=== PATIENT | male | born 1980 | race Caucasian/White ===

== ENCOUNTER → 2019-06-05 14:58 | Outpatient (CLI) | payer MEDICAID, SELFPAY ==
--- NOTE | 2019-06-05 15:02 | US_ITS ---
APPROVED REPORT Laterality: Bilateral Bobbin Doffer: Uyen Enriquez RVT Indications History of Smoking Symptoms History of Smoking Weakness Claudication : Left Rest Pain : Left Risk Factors Obesity Pressures Radial 161.0mmHg Ulnar 167.0mmHg Left Radial 142.0mmHg Ulnar 135.0mmHg Findings RT WBI:1.11 LT WBI:0.95 RT DIGIT:0.86 LT DIGIT:0.90 NORMAL PULSES BILATERAL NORMAL WAVEFORMS BILATERAL Conclusion Normal exam Electronically signed by : Jagdish Laboy MD 06/07/2019 17:27:04
== END ==
PROVIDERS: PCP Nurse Practitioner Family; Visit Provider Nurse Practitioner Family
DX: R20.2 Paresthesia of skin (principal)
CPT/HCPCS: 93923

== ENCOUNTER 2019-10-27 15:38 | Emergency (ER) | payer MEDICAID, SELFPAY ==
[2019-10-27 15:38] VITALS: BP 145/87; PULSE 85; RESP 16; TEMP 36.8; O2SAT 99; BMI 35.1
--- NOTE | 2019-10-27 15:49 | PC.NURSE ---
pt requesting that staff get an ultrasound to start his iv after one unsuccessfull attempt. notified warehouse specialist, stated she will be down to attempt iv via ultrasound when she is finished with the ultrasound
--- NOTE | 2019-10-27 15:53 | XR_ITS ---
PROCEDURE: XR CHEST PORTABLE CLINICAL HISTORY: CP Nonsmoker COMPARISON: No exams were available for comparison FINDINGS: The cardiomediastinal silhouette and pulmonary vascularity are within normal limits. The lungs are clear without infiltrates, suspicious nodules, or pleural effusions. No acute bony abnormalities. IMPRESSION: No acute findings. Dictated by: Dr. Milo Morillo MD 10/27/2019 19:[address] Milo Morillo MD in [place] 10/27/2019 19:05
--- NOTE | 2019-10-27 15:53 | ECG_ITS ---
APPROVED REPORT Exam: Resting ECG HR:70 bpm ECG Measurements Heart Rate 70 AXES OK 166 P 49 QRSd 88 QRS 41 QT 392 T 48 QTc 423 <Conclusion> Normal sinus rhythm Normal ECG Electronically signed by : Sunny Carpenter, 10/28/2019 17:27:42
--- NOTE | 2019-10-27 16:00 | PC.NURSE ---
lab at , unsuccessful with obtaining blood.
--- NOTE | 2019-10-27 16:11 | PC.NURSE ---
rad at BS for portable xray
--- NOTE | 2019-10-27 16:12 | PC.NURSE ---
Adama Khanna at bedside for US guided IV
--- NOTE | 2019-10-27 16:18 | PC.NURSE ---
v/s delayed due to IV insertion
[2019-10-27 16:30] VITALS: BP 132/81; PULSE 64; O2SAT 97
[2019-10-27 16:30] LABS: Basophils % 0.3 % (0.1-2.0); Eosinophils % 0.4 % (0.1-12.0); Hematocrit 39.1 % (42.0-52.0); Hemoglobin 13.9 g/dL (14.1-18.0); Lymphocytes # 0.8 K/mm3 (0.7-4.5); Lymphocytes % 10.4 % (10-50); Mean Corpuscular HGB Conc 35.4 g/dL (31.8-35.4); Mean Corpuscular Volume 84.6 fl (80-94); Mean Platelet Volume 9.2 fl (7.4-10.4); Monocytes # 0.2 K/mm3 (0.1-1.0); Neutrophils # 6.2 K/mm3 (1.8-7.8); Neutrophils % 85.9 % (37.0-80.0); Platelet Count 190 K/mm3 (142-424); Red Blood Count 4.62 M/mm3 (4.60-6.20); Red Cell Distribution Width 13.4 % (11.5-17.5); White Blood Count 7.2 K/mm3 (4.8-10.8)
[2019-10-27 16:31] LABS: MANUAL DIFFERENTIAL MANUAL DIFFERENTIAL (MANUAL DIFF)
[2019-10-27 16:37] LABS: Chloride 102 mmol/L (98-107); Potassium 3.6 mmoL/L (3.5-5.1); Sodium 137 mmol/L (136-145)
[2019-10-27 16:40] LABS: Anion Gap 7.6 mEq/L (5-15); Blood Urea Nitrogen 9 mg/dl (9-20); Carbon Dioxide 31 mmol/L (22.0-30.0); Creatinine Clearance Estimated 196 mL/min (50-200); Estimated Glomerular Filt Rate 107 ml/min (>60); GFR (African American) 129 ML/MIN (>60)
[2019-10-27 16:41] LABS: Calcium 9.1 mg/dl (8.4-10.2); Glucose 134 mg/dl (74-100)
[2019-10-27 16:44] LABS: Lymphocytes % 13 % (10-50); Monocytes % 3 % (2-9); Neutrophils % 84 % (42-76); Platelet Estimate Normal; RBC Morphology Normal; Total Cells Counted 100
[2019-10-27 16:54] LABS: Troponin I < 0.01 ng/ml (0.00-0.034)
--- NOTE | 2019-10-27 17:20 | HMH.EDCP ---
ED Disposition Clinical Impression: Chest pain Disposition: Home, Self-Care Condition on Discharge: Good Instructions: DI for Atypical Chest Pain Additional Instructions: Please follow-up with [employer] or Dr. Cui for a stress test outpatient Prescriptions: Pantoprazole Sodium [Protonix 40mg tablet] 40 mg PO DAILY 30 Days #30 tab Transmission Status: Pending to [facility] Referrals: Jaime Napoles APRN [Primary Care Provider] - - Critical Care Critical Care Time: No Attestation: On 10/27/19, the high probability of a clinically significant, sudden or life threatening deterioration of the following system(s) required my full and direct attention, intervention and personal management. The time I documented below is in addition to time spent performing reported procedures but includes the following listed in this critical care notation. Medical Decision Making - Medical Records Medical records reviewed: Yes: I reviewed the patient's medical records. - Sergio Inquiry Pt receiving controlled substance: No Vital Signs: 10/27/19 15:38 10/27/19 16:30 Temperature 98.2 F Temperature Source Oral Pulse Rate [Right Radial] 85 64 Respiratory Rate 16 Blood Pressure [Right Arm] 145/87 H 132/81 Blood Pressure Mean [Right Arm] 106 98 Blood Pressure Source [Right Arm] Automatic Cuff Automatic Cuff Blood Pressure Position [Right Arm] Sitting Sitting 02 Sat by Pulse Oximetry 99 97 Oxygen Delivery Method Room Air Room Air - Lab Data Lab results reviewed: Yes: I reviewed the patient's lab results. Lab Results 10/27/19 16:25: WBC 7.2, RBC 4.62, Hgb 13.9 L, Hct 39.1 L, MCV 84.6, MCH 30.0, MCHC 35.4, RDW 13.4, Plt Count 190, MPV 9.2, Neut % (Auto) 85.9 H, Lymph % (Auto) 10.4, Tensas % (Auto) 3.0, Eos % (Auto) 0.4, Baso % (Auto) 0.3, Neut # (Auto) 6.2, Lymph # (Auto) 0.8, Tensas # (Auto) 0.2, Eos # (Auto) 0.0, Baso # (Auto) 0.0, Total Counted 100, Neutrophils % (Manual) 84 H, Lymphocytes % (Manual) 13, Monocytes % (Manual) 3, Platelet Estimate Normal, RBC Morphology Normal 10/27/19 16:25: Sodium 137, Potassium 3.6, Chloride 102, Carbon Dioxide 31 H, Anion Gap 7.6, BUN 9, Creatinine 0.80, Estimated Creat Clear 196, Estimated GFR 107, Est GFR ( Amer) 129, Glucose 134 H, Calcium 9.1, Troponin I < 0.01 Result diagrams: 10/27/19 16:25 10/27/19 16:25 Orders (Tests/Meds): ED MEDICATIONS Discontinued Medications Generic Name Dose Route Start Last Admin Trade Name Freq PRN Reason Stop Dose Admin Aspirin 324 mg 10/27/19 16:48 10/27/19 16:57 Aspirin 81mg Chewable Tablet PO 10/27/19 16:49 324 mg ONCE ONE Administration ORDERS Category Date Time Status XR chest portable Stat Exams 10/27/19 15:53 Taken Troponin I Q3H Lab 10/27/19 19:00 Ordered Troponin I Q3H Lab 10/27/19 22:00 Ordered - Radiology Data #1 Image(s): Chest Image Reviewed: Yes I reviewed the patient's radiology image w/the ED provider Preliminary Findings: Normal/NAD - ECG Data Tracing #1 I reviewed this ECG and interpreted as documented below: Normal Sinus Rhythm: Yes Medical Decision Narrative: Patient had 2 troponins done here in the ED I think this is secondary to GERD. Both troponins were negative. Fact is just visiting on for 2 days. Chest Pain HPI - General Chief Complaint: Chest Pain Stated Complaint: Chest Pain Time Seen by Provider: 10/27/19 17:00 Mode of Arrival: Ambulatory Limitations: No Limitations Description of Symptoms (Recalled from ER Triage Doc. by RN): Pt reports burning like pain in midsternal area of his chest that began 2 days ago. Pt reports pain is intermittent in nature, states pain went away yesterday and came back today. - History of Present Illness MD complaint: chest pain Onset (ago): day(s) Time: 19:00 Duration: constant Activity at onset: during rest Pain location: substernal Severity: mild Severity scale (1-10): 3 Quality: aching, oth
[2019-10-27 18:17] LABS: Troponin I < 0.01 ng/ml (0.00-0.034)
[2019-10-27 18:39] VITALS: BP 122/74; PULSE 78; RESP 16; TEMP 36.6; O2SAT 98
== END 2019-10-27 18:40 | disposition home or self-care (01) ==
PROVIDERS: Emergency Provider Family Medicine; PCP Nurse Practitioner Family
DX: R07.9 Chest pain, unspecified (principal); I10 Essential (primary) hypertension; F33.1 Major depressive disorder, recurrent, moderate; F12.10 Cannabis abuse, uncomplicated; Z79.899 Other long term (current) drug therapy
CPT/HCPCS: 71045; 80048; 84484; 85007; 85025; 93005; 96374; 99283

== ENCOUNTER → 2019-11-14 07:55 | Outpatient (CLI) | payer MEDICAID, SELFPAY ==
--- NOTE | 2019-11-14 | CA_ITS ---
APPROVED REPORT Exam: Exercise Treadmill Technologist: Xuan Pacheco, Ht: 5 ft 11 in Wt: 272 lbs BSA: 2.40 m2 HR: 53 bpm BP: 123/73 mmHg Rhythm: SINUS ROMERO,OTHERWISE NORMAL Medical History Medical History: HTN Medications: Lisinopril,,,,, Protonix,,,,, BuPROPION,,,,, BuPRen-NALOXONE,,,,, Allergies: No known drug allergies Cardiac Risk Factors: HTN, FHX of CAD Stress Test Details Test: Manual Treadmill HR Resting HR: 61 bpm Max Heart Rate (APMHR): 179 bpm Max HR Achieved: 144 bpm Target HR (85% APMHR): 152 bpm % of APMHR: 80 Recovery HR: 90 bpm BP Resting BP: 123.0/73.0 mmHg Max BP: 180.0/80.0 mmHg Recovery BP: 138.0/63.0 mmHg ECG Resting ECG: SINUS BRADYCARDIA,OTHERWISE NORMAL Medications Administered Dobutamine ( mg at ) Clinical Exercise duration: 09:25 min Highest Stage Achieved: Exercise capacity: 10.1 METs Stress ECG Conclusion PATIENT EXERCISED 9:25 ON CLEM PROTOCOL WITH MAX HEART RATE 144 BPM WHICH IS 80% OF PM FOR AGE. MAX BP 180/80. METS = 10.1. TEST STOPPED DUE TO SOA AND FATIGUE. NO CHEST PAIN. OCCASIONAL PAC. ALLOWING FOR MOTION ARTIFACT THE ST RESPONSE TO EXERCISE IS WITHIN NORMAL. NORMAL GXT FOR HR ACHIEVED(80% OF PM). ECHO IMAGES REPORTED SEPARATELY(REST AND STRESS) Test Summary REST . . . . . . . Standing REST . . . . . . . Standing REST . . . . . . . Sitting REST . . . . . . . Sitting REST 06:17 0.0 0.0 61 . 123/ 73 . . Stage 1 01:00 10.0 1.7 92 . . . . Stage 1 02:00 10.0 1.7 92 . . . . Stage 1 03:00 10.0 1.7 94 . 130/ 70 . . Stage 2 01:00 12.0 2.5 100 . . . . Stage 2 02:00 12.0 2.5 103 . . . . Stage 2 03:00 12.0 2.5 110 . 146/ 80 . . Stage 3 01:00 14.0 3.4 121 . . . . Stage 3 02:00 14.0 3.4 127 . . . . Stage 3 03:00 14.0 3.4 133 . 180/ 80 . . Stage 4 00:25 16.0 4.2 142 . . . Stop exercise at 09:25 RECOVERY . . . . . . . Protocol changed to Manual Treadmill RECOVERY 01:00 0.0 0.0 90 . . . . RECOVERY 02:00 0.0 0.0 69 . . . . RECOVERY 03:00 0.0 0.0 74 . . . . RECOVERY 04:00 0.0 0.0 73 . 138/ 63 . . RECOVERY 05:00 0.0 0.0 72 . 138/ 63 . . RECOVERY 06:00 0.0 0.0 74 . 138/ 63 . . RECOVERY 07:00 0.0 0.0 78 . 117/ 51 . . Electronically signed by : Benja Hugo, 11/14/2019 14:16:09
--- NOTE | 2019-11-14 07:55 | CA_ITS ---
APPROVED REPORT EXAM: Comprehensive 2D, Doppler, and color-flow Echocardiogram Canvas Baster: Tiana Whitfield, RT(R) Ht: 5 ft 11 in Wt: 272lbs BSA: 2.40 BP: 120/73 mmHg Indications: CP, fatigue, HTN, SOB, CROW, obesity, family history of HD, GERD, ANTHONY, smokeless Conclusion 1. Patient exercised on Sukhdeep protocol achieved 10.1 mets of workload on treadmill with no chest pain. 2. No exercise-induced segmental wall motion abnormality to suggest underlying ischemic heart disease. Although patient did not achieve the target heart rate. 3. Likely normal exercise stress echo Electronically signed by : Benja Hugo, 11/14/2019 14:21:41
--- NOTE | 2019-11-14 07:55 | CA_ITS ---
APPROVED REPORT EXAM: Comprehensive 2D, Doppler, and color-flow Echocardiogram Fleet Manager/Dispatch: Tiana Whitfield RT(R) Ht: 5 ft 11 in Wt: 272lbs BSA: 2.40 BP: 134/80 mmHg Indications: Chest Pain, Shortness of Breath, Obesity, Fatigue, Hypertension/HDD, GERD, ANTHONY, Hx of IV drug use in remission 2D Dimensions LVOT 2.03 cm (M/F) 1.5-2.5 M-Mode Dimensions RVDd 2.33 cm (0.9-2.6) LVDd 5.37 cm (3.5-5.7) LVDs 3.83 cm (3.5-5.7) IVSd 0.97 cm (0.6-1.1) PWd 0.86 cm (0.6-1.1) EF (Teich) 54.80% FS 28.70% EDV (Teich) 139.50 mL ESV (Teich) 63.10 mL LV Diastology E/A Ratio 1.77 Mitral Valve MV A Velocity 54.00 (40-130 cm/s) Left Ventricle Left atrium is normal size, left ventricle is normal size, there is no concentric left ventricular hypertrophy, visually estimated ejection fraction 55% with no regional wall motion abnormality, diastolic parameters are within normal range. Right Ventricle Right atrium and right ventricular normal size and contractility. Aortic Valve Aortic valve is minimally thickened and fibrosed, there is no aortic stenosis or aortic insufficiency. Mitral Valve Mitral valve is grossly normal, there is mild mitral regurgitation. Tricuspid Valve Tricuspid valve is grossly normal, there is mild tricuspid regurgitation, tricuspid regurgitation jet velocity is inadequate for calculation of the right ventricular systolic pressure. Pulmonic Valve Pulmonic valve is poorly visualized. Great Vessels Aortic root is normal size. Pericardium No significant pericardial effusion noted. Conclusion 1. Normal left ventricular size, preserved left ventricular systolic function, visually estimated ejection fraction 55% with no regional wall motion abnormality, diastolic parameters are within normal range. 2. Mild mitral and tricuspid regurgitation. 3. No significant pericardial effusion noted. Electronically signed by : Benja Hugo, 11/14/2019 13:57:01
== END ==
PROVIDERS: PCP Nurse Practitioner Family; Visit Provider Internal Medicine Cardiovascular Disease
DX: R07.9 Chest pain, unspecified (principal); I10 Essential (primary) hypertension
CPT/HCPCS: 93017; 93306; 93350

== ENCOUNTER → 2019-12-06 14:19 | Outpatient (CLI) | payer MEDICAID, SELFPAY | PROVIDERS: PCP Nurse Practitioner Family; Visit Provider Physician Assistant | DX: G47.33 Obstructive sleep apnea (adult) (pediatric) (principal) | CPT/HCPCS: G0399 ==

== ENCOUNTER → 2020-01-14 09:33 | Outpatient (CLI) | payer MEDICAID, SELFPAY ==
--- NOTE | 2020-01-15 10:38 | PC.NURSE ---
PATIENT TOOK HST HOME - ONLY 1.5 HOURS OF SLEEP THEREFORE NOT UPLOADED DUE TO LACK OF TIME - PATIENT NOTIFIED... NO CHARGE...
== END ==
PROVIDERS: PCP Nurse Practitioner Family; Visit Provider Nurse Practitioner Family
DX: G47.30 Sleep apnea, unspecified (principal)

== ENCOUNTER → 2020-04-22 16:05 | Outpatient (CLI) | payer MEDICAID, SELFPAY ==
[2020-04-22 16:59] LABS: Basophils # 0.1 K/mm3 (0-0.2); Basophils % 0.7 % (0.1-2.0); Eosinophils # 0.1 K/mm3 (0.0-0.4); Eosinophils % 1.7 % (0.1-12.0); Hematocrit 45.3 % (42.0-52.0); Hemoglobin 15.8 g/dL (14.1-18.0); Lymphocytes # 2.2 K/mm3 (0.7-4.5); Mean Corpuscular HGB Conc 34.8 g/dL (31.8-35.4); Mean Corpuscular Hemoglobin 30.6 pg (27.0-31.2); Mean Corpuscular Volume 87.9 fl (80-94); Mean Platelet Volume 8.9 fl (7.4-10.4); Monocytes # 0.3 K/mm3 (0.1-1.0); Monocytes % 3.9 % (1.7-9.3); Neutrophils # 5.4 K/mm3 (1.8-7.8); Neutrophils % 66.7 % (37.0-80.0); Platelet Count 191 K/mm3 (142-424); Red Blood Count 5.15 M/mm3 (4.60-6.20); Red Cell Distribution Width 13.5 % (11.5-17.5); White Blood Count 8.2 K/mm3 (4.8-10.8)
[2020-04-22 18:38] LABS: Chloride 102 mmol/L (98-107); Potassium 4.2 mmoL/L (3.5-5.1); Sodium 140 mmol/L (136-145)
[2020-04-22 18:41] LABS: Blood Urea Nitrogen 11 mg/dl (9-20); Estimated Glomerular Filt Rate 107 ml/min (>60); GFR (African American) 129 ML/MIN (>60)
[2020-04-22 18:42] LABS: Anion Gap 14.2 mEq/L (5-15); Calcium 9.8 mg/dl (8.4-10.2); Carbon Dioxide 28 mmol/L (22.0-30.0); Glucose 97 mg/dl (74-100)
[2020-04-22 19:13] LABS: Thyroid Stimulating Hormone 0.95 uIU/mL (0.465-4.68)
[2020-04-22 19:17] LABS: Ferritin 94.6 ng/ml (17.9-464)
[2020-04-22 19:23] LABS: Hemoglobin A1C 5.2 % (4.0-6.0)
[2020-04-28 20:10] LABS: 1,25 Dihydroxy Vitamin D 38 pg/mL (.); 1,25-Dihydroxy, Vitamin D-2 <10 pg/mL (.); 1,25-Dihydroxy, Vitamin D-3 38 pg/mL (.)
== END ==
PROVIDERS: PCP Nurse Practitioner Family; Visit Provider Specialist
DX: R73.09 Other abnormal glucose (principal)
CPT/HCPCS: 36415; 80048; 82652; 82728; 83036; 84443; 85025

== ENCOUNTER 2020-05-05 12:48 | Outpatient (RCR) | payer MEDICAID, SELFPAY ==
--- NOTE | 2020-05-05 14:18 | HMH.PTOPEV ---
PT Outpatient Evaluation Rehab PT Outpatient Evaluation Start: 05/05/20 13:36 Freq: Status: Active Protocol: Document 05/05/20 13:36 JOHN (Rec: 05/05/20 14:17 JOHN [id number]) Electronically Signed By Du Keller, PT 05/05/20 13:36 Outpatient Therapy Subjective History Subjective History Pt reports insidious onset R sided neck pain beginning ~2 months ago. Pt reports localized soreness in R UT mm w/referred pain into R scalene mm, and periscap mm area. Pt reports intermittent N&T in R SH area as well. Chief Complaint Pain,Stiff,Paresthesia Symptom Type Ache,Dull,Numbness,Tingling Symptoms Relieved By Rest/Positioning,Heat Symptoms Aggravated By Physical Activity,Lifting Prior Functional Limitations Lifting,Housework,Desk Work/ Reading Current Functional Limitations Lifting,Housework,Desk Work/ Reading Symptom Description Constant but Variable Level of pain today (0-10) 5 Pain scale - at its best (0-10) 5 Pain scale - at its worst (0-10) 7 Cervical Eval Palpation Cervical Muscles R Cervical Paraspinal,R CT Junction,R Upper Trapezius Cervical/Thoracic Palpation Findings Tenderness,Trigger Point, Muscle Guarding Posture Head/C-Spine Posture Sitting Position Flexed Head/C-Spine Posture Standing Position Flexed Flexibility Deficits Upper Trapezius Muscle Length (R) Moderate Tightness Levaetor Scapulae Muscle Length (R) Moderate Tightness Scalene Group Muscle Length (R) Moderate Tightness Pectoralis Major Muscle Length (R) Moderate Tightness Pectoralis Minor Muscle Length (R) Moderate Tightness Passive Joint Mobility Cervical PIVM WNL: R OA L OA R AA L AA R C2/3 L C2/3 R C3/4 L C3/4 R C4/5 L C4/5 R C5/6 L C5/6 R C6/7 L C6/7 R C7/T1 L C7/T1 AROM Cervical Spine Extension Active Range of 0-20 Motion (degrees) Cervical Spine Flexion Active Range of 0-60 Motion (degrees)
== END 2020-05-05 12:50 | disposition home or self-care (01) ==
LOC: PT 12:48
PROVIDERS: PCP Nurse Practitioner Family; Visit Provider Nurse Practitioner Family
DX: S46.811A Strain of other muscles, fascia and tendons at shoulder and upper arm level, right arm, initial encounter (principal)
CPT/HCPCS: 20561; 97010; 97014; 97035; 97110; 97163; G0283

== ENCOUNTER → 2021-11-26 15:34 | Outpatient (CLI) | payer MEDICAID, SELFPAY ==
[2021-11-26 12:59] LABS: Basophils % 0.7 % (0.1-2.0); Eosinophils # 0.1 K/mm3 (0.0-0.4); Eosinophils % 1.2 % (0.1-12.0); Hemoglobin 15.3 g/dL (14.1-18.0); Lymphocytes # 1.7 K/mm3 (0.7-4.5); Lymphocytes % 29.9 % (10-50); Mean Corpuscular Hemoglobin 30.1 pg (27.0-31.2); Mean Corpuscular Volume 88.6 fl (80-94); Mean Platelet Volume 8.2 fl (7.4-10.4); Monocytes # 0.3 K/mm3 (0.1-1.0); Monocytes % 5.9 % (1.7-9.3); Neutrophils # 3.6 K/mm3 (1.8-7.8); Neutrophils % 62.3 % (37.0-80.0); Platelet Count 196 K/mm3 (142-424); Red Blood Count 5.08 M/mm3 (4.60-6.20); Red Cell Distribution Width 12.1 % (11.5-17.5); White Blood Count 5.7 K/mm3 (4.8-10.8)
[2021-11-26 13:11] LABS: Alanine Aminotransferase 29 U/L (12-78); Albumin Level 4.4 g/dl (3.5-5.0); Albumin/Globulin Ratio 1.4 (1.1-1.8); Alkaline Phosphatase 84 U/L (38-126); Anion Gap 12.1 mEq/L (5-15); Aspartate Amino Transferase 47 U/L (17-59); Bilirubin,Total 0.5 mg/dl (0.2-1.3); Blood Urea Nitrogen 12 mg/dl (9-20); Calcium 9.5 mg/dl (8.4-10.2); Carbon Dioxide 27 mmol/L (22.0-30.0); Chloride 103 mmol/L (98-107); Chol/HDL Ratio 2.9 (1-3.5); Cholesterol 173 mg/dl (140-200); Estimated Glomerular Filt Rate 147 ml/min (>60); GFR (African American) 178 ML/MIN (>60); Globulin 3.1 g/dL (1.3-3.2); Glucose 111 mg/dl (74-100); HDL Cholesterol 60 mg/dl (40-60); Potassium 4.1 mmoL/L (3.5-5.1); Sodium 138 mmol/L (136-145); Total Protein,Serum 7.5 g/dl (6.3-8.2); Triglycerides 57 mg/dl (30-150); VLDL Cholesterol 11 mg/dL (0-40)
[2021-11-26 13:22] LABS: Direct LDL Cholesterol 77.88 mg/dL (100-129)
[2021-11-26 13:28] LABS: T4 (Thyroxine) 10.3 ug/dl (5.53-11.0)
[2021-11-26 13:29] LABS: 25-OH Vitamin D, Total 41.7 ng/mL (30-100)
[2021-11-26 13:41] LABS: Prostate Specific Ag Screen 0.9 ng/ml (0.0-4.0); Thyroid Stimulating Hormone 0.93 uIU/mL (0.465-4.68)
== END ==
PROVIDERS: Visit Provider Nurse Practitioner Family
DX: I10 Essential (primary) hypertension (principal); R53.83 Other fatigue; E66.9 Obesity, unspecified; Z68.31 Body mass index [BMI] 31.0-31.9, adult; Z12.5 Encounter for screening for malignant neoplasm of prostate
CPT/HCPCS: 80053; 80061; 82306; 84436; 84443; 85025; G0103

== ENCOUNTER → 2021-12-21 11:50 | Outpatient (CLI) | payer MEDICAID, SELFPAY | PROVIDERS: PCP Nurse Practitioner Family; Visit Provider Internal Medicine Gastroenterology | DX: Z01.812 Encounter for preprocedural laboratory examination (principal); Z20.822 Contact with and (suspected) exposure to COVID-19; Z12.11 Encounter for screening for malignant neoplasm of colon | CPT/HCPCS: C9803; U0003; U0005 ==

== ENCOUNTER 2021-12-23 10:47 | Day surgery (SDC) | payer MEDICAID, SELFPAY ==
[2021-12-20 11:32] VITALS: BMI 31.4
[2021-12-23 11:59] VITALS: BP 133/62; PULSE 63; RESP 16; TEMP 36.6; O2SAT 98
[2021-12-23 12:42] VITALS: O2SAT 97
--- NOTE | 2021-12-23 14:21 | SUR.PHASEII ---
1320- pt to post op via stretcher having an aborted colonoscopy. No sedation given. b/p @ 153/90, hr @65, resp 18, 02 @ 98%. Pt awake and alert. Dressed and able to void. Re-scheduled colonoscopy in 4 weeks.
== END 2021-12-23 14:27 | disposition home or self-care (01) ==
LOC: OUTP 10:49
PROVIDERS: Visit Provider Internal Medicine Gastroenterology
PROC: 0DJD8ZZ Inspection of Lower Intestinal Tract, Via Natural or Artificial Opening Endoscopic (ICD-10-PCS; CPT 45378; principal; 2021-12-23 12:00)
DX: Z12.11 Encounter for screening for malignant neoplasm of colon (principal); Z53.9 Procedure and treatment not carried out, unspecified reason; Z79.899 Other long term (current) drug therapy; Z80.0 Family history of malignant neoplasm of digestive organs
CPT/HCPCS: 45378

== ENCOUNTER 2022-01-07 23:28 | Emergency (ER) | payer MEDICAID, SELFPAY ==
--- NOTE | 2022-01-07 23:24 | ECG_ITS ---
APPROVED REPORT Exam: Resting ECG HR:59 bpm ECG Measurements Heart Rate 59 AXES ME 170 P 61 QRSd 106 QRS 61 QT 419 T 51 QTc 419 Conclusion SINUS BRADYCARDIA BORDERLINE ECG UNCONFIRMED REPORT Electronically signed by : Sunny Carpenter MD 01/08/2022 16:22:43
[2022-01-07 23:28] VITALS: BP 139/85; PULSE 84; RESP 16; TEMP 36.8; O2SAT 99; BMI 32.1
--- NOTE | 2022-01-08 00:02 | HMH.EDCP ---
Discharge Plan Disposition Patient Disposition: Home, Self-Care Chief Complaint: Chest Pain Prescriptions Prescriptions: No Action buprenorphine-naloxone 8-2 mg tablet, sublingual 1 tab SL DAILY clotrimazole-betamethasone 1-0.05 % cream 1 applic TP BID Qty: 15 0RF cetirizine 10 MG tablet 10 mg PO DAILY Rx Instructions: TAKE ONE TABLET BY MOUTH ONCE A DAY pantoprazole 40 MG tablet,delayed release (DR/EC) 40 mg PO DAILY Rx Instructions: TAKE ONE TABLET BY MOUTH ONCE A DAY lisinopril 5 MG tablet 5 mg PO DAILY Referrals Follow up/Referrals: Jaime Napoles APRN [Primary Care Provider] - See instructions Clinical Impressions Clinical Impression: Chest pain Instructions Patient Instructions: DI for Atypical Chest Pain Discharge ED Provider: Mikael Laguna Chest Pain HPI General Chief Complaint: Chest Pain Stated Complaint: cp Time Seen by Provider: 01/08/22 00:02 Mode of Arrival: Ambulatory Source of Information: Patient, Significant Other and Medical Record Limitations: No Limitations Description of Symptoms (Recalled from ER Triage Doc. by RN): pt c/o burning chest pain radiating down lt arm that started @ 7pm. History of Present Illness HPI narrative: burning type pain with no hx of mi - MD complaint: chest pain indicative of cardiac Onset (ago): hour(s) Duration: intermittent Activity at onset: during rest Pain location: epigastric Severity: moderate Quality: dull Pain radiation: LUE Risk Factors for CAD: Hypertension and Family Hx of CAD Treatments prior to or on arrival for Cardiac Chest Pain: none AYSE Score for Non-Stemi Age of Patient: 40-49 years old Heart Rate: 70-89 bpm Systolic Blood Pressure: 100-119 mmHg Serum Creatinine: 0.40-0.79 mg/dl CHF Killip Class: I-No CHF Other Risk Factors: None Non-Stemi Risk Score: 81 Related Data Prior Cardiac Testing/Procedures: Stress Test Home Medications Medication Instructions Recorded Confirmed buprenorphine 8 mg-naloxone 2 mg 1 tab sublingual DAILY . 07/03/19 01/04/22 sublingual tablet cetirizine 10 mg tablet 10 mg PO DAILY allergies 12/20/21 01/04/22 lisinopril 5 mg tablet 5 mg PO DAILY bp 12/20/21 01/04/22 pantoprazole 40 mg tablet,delayed 40 mg PO DAILY Reflux/Acid reflux 12/20/21 01/04/22 release Previous Rx's Medication Instructions Recorded clotrimazole-betamethasone 1 1 applic topical BID to use in 12/28/21 %-0.05 % topical cream right ear canal #15 grams Allergies Allergy/AdvReac Type Severity Reaction Status Date / Time No Known Allergies Allergy Unknown Uncoded 01/04/22 13:48 PFSH [facility] Medical History (Updated 01/08/22 @ 01:52 by Mikael Laguna MD) GERD (gastroesophageal reflux disease) Hypertension Social History Smoking Status: Never smoker second hand exposure: No alcohol intake: current substance use type: painkillers current occupational status: employed Travel in the last 8 weeks: None household members: significant other and children housing: house current occupational exposures/hazards: No caffeine: Yes ROS Obtained: Yes All systems reviewed & no additional complaints except as documented Physical Exam General General appearance: alert Head Head exam: normocephalic Eye Eye exam: Present PERRL and EOMI ENT ENT exam: Present mucous membranes moist Neck Neck exam: Present trachea midline Respiratory Respiratory exam: Present normal lung sounds bilaterally Cardiovascular Cardiovascular exam: Present regular rate; Absent systolic murmur Abdominal Exam Abdominal exam: Present soft Extremities Exam Extremities exam: Present full ROM Neurological Exam Neurological exam: Present alert, oriented X3 and CN II-XII intact Psychiatric Psychiatric exam: Present normal affect Skin Skin exam: Absent rash Medical Decision Making Medical Records Medical records reviewed: Yes I reviewed the patient's medical records. [facility]
[2022-01-08 00:04] LABS: Chloride 102 mmol/L (98-107); Sodium 141 mmol/L (136-145)
[2022-01-08 00:07] LABS: Basophils # 0.1 K/mm3 (0-0.2); Basophils % 1.1 % (0.1-2.0); Eosinophils # 0.1 K/mm3 (0.0-0.4); Eosinophils % 1.5 % (0.1-12.0); Hematocrit 44.1 % (42.0-52.0); Hemoglobin 14.1 g/dL (14.1-18.0); Lymphocytes % 34.2 % (10-50); Mean Corpuscular Hemoglobin 29.2 pg (27.0-31.2); Mean Corpuscular Volume 91.3 fl (80-94); Mean Platelet Volume 8.6 fl (7.4-10.4); Monocytes # 0.3 K/mm3 (0.1-1.0); Monocytes % 4.6 % (1.7-9.3); Neutrophils # 3.4 K/mm3 (1.8-7.8); Neutrophils % 58.5 % (37.0-80.0); Platelet Count 203 K/mm3 (142-424); Red Blood Count 4.83 M/mm3 (4.60-6.20); Red Cell Distribution Width 12.6 % (11.5-17.5); White Blood Count 5.8 K/mm3 (4.8-10.8)
[2022-01-08 00:14] LABS: Anion Gap 11.2 mEq/L (5-15); Blood Urea Nitrogen 17 mg/dl (9-20); Calcium 9.6 mg/dl (8.4-10.2); Carbon Dioxide 31 mmol/L (22.0-30.0); Creatinine Clearance Estimated 201 mL/min (50-200); Estimated Glomerular Filt Rate 123 ml/min (>60); GFR (African American) 149 ML/MIN (>60); Glucose 118 mg/dl (74-100); Potassium 3.2 mmoL/L (3.5-5.1)
[2022-01-08 00:21] LABS: Troponin I < 0.01 ng/ml (0.00-0.034)
[2022-01-08 00:30] VITALS: BP 110/59; PULSE 45; RESP 16; O2SAT 95
--- NOTE | 2022-01-08 00:36 | XR_ITS ---
PROCEDURE INFORMATION: Exam: XR Chest Exam date and time: 01/08/2022 12:32 AM Age: 41 years old Clinical indication: Sternal or substernal pain; Additional info: Cp TECHNIQUE: Imaging protocol: Radiologic exam of the chest. Views: 2 views. COMPARISON: CR XR CHEST PORTABLE 10/27/2019 4:19 PM FINDINGS: Lungs: Unremarkable. No consolidation. Pleural spaces: Unremarkable. No pleural effusion. No pneumothorax. Heart/Mediastinum: Unremarkable. No cardiomegaly. Bones/joints: Unremarkable. IMPRESSION: No acute cardiopulmonary abnormality.
[2022-01-08 01:00] VITALS: BP 117/65; PULSE 46; RESP 16; O2SAT 96
[2022-01-08 01:30] VITALS: BP 117/61; PULSE 43; RESP 13; O2SAT 95
[2022-01-08 01:51] VITALS: BP 117/61; PULSE 46; PULSE 64; RESP 16; TEMP 36.8; O2SAT 95
[2022-01-08 02:42] LABS: Troponin I < 0.01 ng/ml (0.00-0.034)
== END 2022-01-08 02:47 | disposition home or self-care (01) ==
PROVIDERS: Emergency Provider Emergency Medicine; PCP Nurse Practitioner Family
DX: R07.9 Chest pain, unspecified (principal); M79.601 Pain in right arm; I10 Essential (primary) hypertension; K21.9 Gastro-esophageal reflux disease without esophagitis; G47.30 Sleep apnea, unspecified; I25.10 Atherosclerotic heart disease of native coronary artery without angina pectoris; Z87.891 Personal history of nicotine dependence; Z82.49 Family history of ischemic heart disease and other diseases of the circulatory system
CPT/HCPCS: 71046; 80048; 84484; 85025; 93005; 96361; 96374; 96375; 96376; 99285; J2405

== ENCOUNTER → 2022-01-11 09:43 | Outpatient (CLI) | payer MEDICAID, SELFPAY ==
--- NOTE | 2022-01-11 09:43 | MR_ITS ---
FINAL REPORT CLINICAL HISTORY: left unilateral tinnitus- temporal bone protocol right sided ear pain and numbness x6 months dizziness ringing in ear hx of sinus surgery when patient was 13 years old best images possible was able to do the wo before patinet started to get claustrophobic, insrusted patient to call order doctors and explain to them what happened FINDINGS: Multiplanar MR imaging of the brain was performed without contrast, with attention to the posterior fossa, cerebellopontine angles and internal auditory canals. There is no evidence of intracranial hemorrhage or mass. The ventricular size is within normal limits. There is no evidence of shift of the midline structures. No area of abnormal restricted diffusion is identified. Normal major vessel vascular flow voids are seen. No mass is seen within the cerebellopontine angles or internal auditory canals. No focal abnormality is identified of the temporal bones. IMPRESSION: No acute intracranial abnormality identified. Reviewed, Interpreted and Dictated by Sonny Castro III, MD Transcribed by Kacey Kimbrough Authenticated and . [facility]
== END ==
PROVIDERS: PCP Nurse Practitioner Family; Visit Provider Student in an Organized Health Care Education/Training Program
DX: H92.01 Otalgia, right ear (principal); H93.11 Tinnitus, right ear
CPT/HCPCS: 70551

== ENCOUNTER → 2022-01-18 10:42 | Outpatient (CLI) | payer MEDICAID, SELFPAY | PROVIDERS: PCP Nurse Practitioner Family; Visit Provider Internal Medicine Gastroenterology | DX: Z01.818 Encounter for other preprocedural examination (principal); Z20.822 Contact with and (suspected) exposure to COVID-19; Z12.11 Encounter for screening for malignant neoplasm of colon | CPT/HCPCS: C9803; U0003; U0005 ==

== ENCOUNTER 2022-01-20 10:31 | Day surgery (SDC) | payer MEDICAID, SELFPAY ==
[2022-01-20 10:57] VITALS: BP 148/67; PULSE 63; RESP 17; TEMP 37.1; O2SAT 99; BMI 32.8
--- NOTE | 2022-01-20 11:20 | P.PN_ITS ---
PFSH PFS Medical History (Updated 01/20/22 @ 10:54 by Hyun Montero, RN) GERD (gastroesophageal reflux disease) Hypertension Presence of surgical screw in left hand Sleep apnea Surgical History (Updated 01/20/22 @ 10:54 by Hyun Montero, RN) History of nasal surgery Family History (Updated 01/20/22 @ 10:54 by Hyun Montero, RN) Other Lung cancer Prostate cancer Social History (Updated 01/20/22 @ 10:56 by Hyun Montero, RN) Smoking Status: Former smoker pack-years: 5 second hand exposure: No alcohol intake: current substance use type: painkillers current occupational status: employed Travel in the last 8 weeks: None household members: significant other and children housing: house current occupational exposures/hazards: No caffeine: Yes [facility] Anesthesia Checklist Patient Identification Patient Identification: Arm Band Structural Data Admitted From: Home Planned Operative Procedure/s: Colonoscopy Consent for Planned Operative Procedure(s) Verified: Yes Verified Documents: Surgical Consent and History and Physical NPO Status Verified Time NPO: 08:00 (gatorade) Additional verifications Anesthesia Reactions: No Hx Blood Transfusions: No Blood Transfusion Reaction: No Airway Assessment C-Spine Mobility Assessed: Yes TMJ Mobility Assessed: Yes Dentition: Good Dentition Neurological Assessment Level of Consciousness: Awake and Alert Anesthesia Plan Anesthesia Risk discussed: Yes Anesthesia Plan: Verified ASA Class: II Anesthesia Type: MAC
--- NOTE | 2022-01-20 12:10 | HMH.SCOPE ---
Procedure: Date: 01/20/22 Patient Date of :: 1980 Procedure Performed:: Colonoscopy with polypectomy Indications:: Family history of colon cancer Performing Provider:: Samuel Bran MD Referring Provider:: Jaime Napoles Sedation:: Propofol Procedure:: After placing the patient in the left lateral decubitus position, the colonoscopy was gently inserted into the rectum and under direct visualization advanced to the cecum which was identified by transillumination in the right lower quadrant, identification of the ileocecal valve, appendiceal orifice, and cecal strap. Color, texture, mucosa, and anatomy of the colon were carefully examined with the scope. Findings:: Anal canal: normal Rectum: normal Sigmoid colon: normal without polyps or inflammatory changes Descending colon: normal without inflammatory changes 0.3 cm adenomatous polyp identified and removed with use of forceps Splenic flexure: normal Transverse colon: normal without polyps or inflammatory changes Hepatic flexure: normal Ascending colon: normal without polyps or inflammatory changes Cecum: normal Terminal ileum: not visualized Specimens:: Polyp, descending colon Recommendations:: Repeat examination in about 3-5 years, sooner if clinically indicated Complications:: None Estimated blood obtained (mL): 0
[2022-01-20 12:19] VITALS: BP 115/72; PULSE 47; RESP 18; TEMP 36.9; O2SAT 99
[2022-01-20 12:29] VITALS: BP 123/81; PULSE 61; RESP 18; TEMP 36.9; O2SAT 100
[2022-01-20 12:39] VITALS: BP 130/78; PULSE 56; RESP 18; TEMP 36.9; O2SAT 99
[2022-01-20 12:55] VITALS: BP 126/75; PULSE 50; RESP 18; TEMP 36.9; O2SAT 98
== END 2022-01-20 12:55 | disposition home or self-care (01) ==
PROVIDERS: PCP Nurse Practitioner Family; Visit Provider Internal Medicine Gastroenterology
PROC: 0DJD8ZZ Inspection of Lower Intestinal Tract, Via Natural or Artificial Opening Endoscopic (ICD-10-PCS; CPT 45378; principal; 2022-01-20 11:30)
DX: Z12.11 Encounter for screening for malignant neoplasm of colon (principal); Z80.0 Family history of malignant neoplasm of digestive organs; K63.5 Polyp of colon
CPT/HCPCS: 45380

== ENCOUNTER → 2022-02-10 10:04 | Outpatient (CLI) | payer MEDICAID, SELFPAY ==
--- NOTE | 2022-02-10 10:05 | CT_ITS ---
FINAL REPORT TECHNIQUE: Thin section axial CT images with coronal and sagittal reformats were performed through the neck. This study was performed with techniques to keep radiation doses as low as reasonably achievable (ALARA). Individualized dose reduction techniques using automated exposure control or adjustment of mA and/or kV according to the patient's size were employed. CLINICAL HISTORY: right ear/jaw pain and fullness FINDINGS: There are multiple small and borderline size lymph nodes. There is no definite adenopathy. There are several calcifications in the region of the tonsillar pillars that are likely postinflammatory. There is mild fullness of the right tonsillar pillar of uncertain significance. The nasopharynx and hypopharynx are unremarkable. Larynx is unremarkable. Thyroid gland is unremarkable. IMPRESSION: Mild fullness of the right tonsillar pillar of uncertain significance could be inflammatory. Neoplasm cannot be excluded. Calcifications in the region of the tonsillar pillars are likely postinflammatory. Reviewed, Interpreted and Dictated by Sonny Castro III, MD Transcribed by Bucky Guo Authenticated and [facility]
== END ==
PROVIDERS: PCP Otolaryngology; Visit Provider Otolaryngology
DX: H92.01 Otalgia, right ear (principal)
CPT/HCPCS: 70490

== ENCOUNTER 2022-04-22 10:04 | Outpatient (RCR) | payer MEDICAID, SELFPAY ==
--- NOTE | 2022-04-22 12:04 | HMH.OTOPEV ---
OT Inpatient Evaluation Rehab OT Outpatient Eval Start: 04/22/22 10:43 Freq: Status: Active Protocol: Document 04/22/22 10:44 SANTHOSHLILIAN (Rec: 04/22/22 11:00 JAROD [id number]) E-signed By Hyun Partida, OT Outpatient Therapy Subjective History Subjective History 41 year old male referred to skilled OP OT services for R shld pain. Patient stated to have R shoulder pain, R side cervical neck pain and pain in the back of the shoulder during certain movements. Patient stated to be having pain for the past 3 years in the shoulder with miminal relief. On 02/10/[address] scan of the neck with findings of: Mild fullness of the right tonsillar pillar of uncertain significance could be inflammatory. Neoplasm cannot be excluded. Calcifications in the region of the tonsillar pillars are likely postinflammatory. Chief Complaint Pain,Weakness Symptom Type Ache,Numbness,Tingling Symptoms Relieved By Nothing Symptoms Aggravated By Physical Activity Prior Functional Limitations None Current Functional Limitations Reaching,Lifting,Recreation Activity Symptom Description Constant and Continuous Level of pain today (0-10) 6 Pain scale - at its best (0-10) 6 Pain scale - at its worst (0-10) 9 Shoulder/Elbow Eval Shoulder Objective Measurements Shoulder ROM Right Shoulder Abduction Active Range of 110 Motion (degrees) Shoulder Flexion Active Range of Motion 140 (degrees) Query Text: Shoulder External Rotation Active Range 80 of Motion (degrees) Shoulder Internal Rotation Active Range 70 of Motion (degrees) pain with active ROM shoulder exam right standard Shoulder MMT Shoulder Abduction Strength Grade 3+ Fair+ Shoulder Extension Strength Grade 3+ Fair+ Shoulder Flexion Strength Grade 3+ Fair+ Shoulder Horizontal Abduction Strength 3+ Fair+ Grade Shoulder Horizontal Adduction Strength 3+ Fair+ Grade Infraspinatus/Teres Minor Strength Grade 3+ Fair+ Shoulder External Rotation Strength 3+ Fair+ Grade Shoulder Internal Rotation Streng
== END 2022-04-22 10:10 | disposition home or self-care (01) ==
LOC: OT 10:04
PROVIDERS: PCP Nurse Practitioner Family; Visit Provider Nurse Practitioner Family
DX: M25.511 Pain in right shoulder (principal); S46.911A Strain of unspecified muscle, fascia and tendon at shoulder and upper arm level, right arm, initial encounter
CPT/HCPCS: 97010; 97014; 97165; 97530; G0283

== ENCOUNTER → 2022-05-05 12:38 | Outpatient (CLI) | payer MEDICAID, SELFPAY ==
--- NOTE | 2022-05-05 12:46 | ECG_ITS ---
APPROVED REPORT Exam: Resting ECG HR:53 bpm ECG Measurements Heart Rate 53 AXES WV 172 P 48 QRSd 88 QRS 65 QT 407 T 42 QTc 389 Conclusion SINUS BRADYCARDIA BORDERLINE ECG UNCONFIRMED REPORT Electronically signed by : Sunny Carpenter MD 05/06/2022 08:51:08
[2022-05-05 12:51] LABS: MANUAL DIFFERENTIAL MANUAL DIFFERENTIAL (MANUAL DIFF)
[2022-05-05 14:34] LABS: Chloride 104 mmol/L (98-107)
[2022-05-05 14:35] LABS: Potassium 4.6 mmoL/L (3.5-5.1); Sodium 139 mmol/L (136-145)
[2022-05-05 14:37] LABS: Basophils # 0.1 K/mm3 (0-0.2); Eosinophils # 0.1 K/mm3 (0.0-0.4); Eosinophils % 0.7 % (0.1-12.0); Hematocrit 49.7 % (42.0-52.0); Hemoglobin 16.5 g/dL (14.1-18.0); Lymphocytes # 1.8 K/mm3 (0.7-4.5); Lymphocytes % 26.4 % (10-50); Mean Corpuscular HGB Conc 33.1 g/dL (31.8-35.4); Mean Corpuscular Hemoglobin 30.6 pg (27.0-31.2); Mean Corpuscular Volume 92.5 fl (80-94); Mean Platelet Volume 9.7 fl (7.4-10.4); Monocytes # 0.3 K/mm3 (0.1-1.0); Monocytes % 4.7 % (1.7-9.3); Neutrophils # 4.4 K/mm3 (1.8-7.8); Neutrophils % 67.1 % (37.0-80.0); Platelet Count 198 K/mm3 (142-424); Red Blood Count 5.38 M/mm3 (4.60-6.20); Red Cell Distribution Width 12.9 % (11.5-17.5); White Blood Count 6.6 K/mm3 (4.8-10.8)
[2022-05-05 14:38] LABS: Alanine Aminotransferase 56 U/L (12-78); Albumin Level 4.9 g/dl (3.5-5.0); Albumin/Globulin Ratio 1.9 (1.1-1.8); Alkaline Phosphatase 71 U/L (38-126); Anion Gap 12.6 mEq/L (5-15); Aspartate Amino Transferase 55 U/L (17-59); Bilirubin,Total 0.8 mg/dl (0.2-1.3); Blood Urea Nitrogen 15 mg/dl (9-20); Calcium 9.2 mg/dl (8.4-10.2); Carbon Dioxide 27 mmol/L (22.0-30.0); Estimated Glomerular Filt Rate 123 ml/min (>60); GFR (African American) 149 ML/MIN (>60); Globulin 2.6 g/dL (1.3-3.2); Glucose 102 mg/dl (74-100); Total Protein,Serum 7.5 g/dl (6.3-8.2)
[2022-05-05 15:11] LABS: Eosinophils % 2 % (0-3); Lymphocytes % 35 % (10-50); Monocytes % 4 % (2-9); Neutrophils % 59 % (42-76); Platelet Estimate Normal; RBC Morphology Normal; Total Cells Counted 100
== END ==
PROVIDERS: PCP Nurse Practitioner Family; Visit Provider Otolaryngology
DX: Z01.818 Encounter for other preprocedural examination (principal); J35.1 Hypertrophy of tonsils
CPT/HCPCS: 36415; 80053; 85007; 85014; 85018; 85048; 85049; 93005

== ENCOUNTER → 2022-06-27 10:24 | Outpatient (CLI) | payer MEDICAID, SELFPAY ==
[2022-06-27 10:38] LABS: MANUAL DIFFERENTIAL MANUAL DIFFERENTIAL (MANUAL DIFF)
[2022-06-27 11:17] LABS: Basophils # 0.1 K/mm3 (0-0.2); Basophils % 0.7 % (0.1-2.0); Eosinophils # 0.3 K/mm3 (0.0-0.4); Eosinophils % 3.1 % (0.1-12.0); Hemoglobin 14.2 g/dL (14.1-18.0); Lymphocytes # 1.9 K/mm3 (0.7-4.5); Lymphocytes % 22.3 % (10-50); Mean Corpuscular HGB Conc 33.2 g/dL (31.8-35.4); Mean Corpuscular Hemoglobin 29.6 pg (27.0-31.2); Mean Corpuscular Volume 89.1 fl (80-94); Mean Platelet Volume 8.2 fl (7.4-10.4); Monocytes # 0.4 K/mm3 (0.1-1.0); Monocytes % 4.4 % (1.7-9.3); Neutrophils # 5.8 K/mm3 (1.8-7.8); Neutrophils % 69.7 % (37.0-80.0); Platelet Count 231 K/mm3 (142-424); Red Blood Count 4.82 M/mm3 (4.60-6.20); Red Cell Distribution Width 12.4 % (11.5-17.5); White Blood Count 8.4 K/mm3 (4.8-10.8)
[2022-06-27 11:33] LABS: Alanine Aminotransferase 34 U/L (12-78); Albumin Level 4.5 g/dl (3.5-5.0); Albumin/Globulin Ratio 1.8 (1.1-1.8); Alkaline Phosphatase 74 U/L (38-126); Anion Gap 9.2 mEq/L (5-15); Aspartate Amino Transferase 40 U/L (17-59); Bilirubin,Total 0.7 mg/dl (0.2-1.3); Blood Urea Nitrogen 15 mg/dl (9-20); Calcium 9.2 mg/dl (8.4-10.2); Carbon Dioxide 26 mmol/L (22.0-30.0); Chloride 107 mmol/L (98-107); Estimated Glomerular Filt Rate 123 ml/min (>60); GFR (African American) 148 ML/MIN (>60); Globulin 2.5 g/dL (1.3-3.2); Glucose 106 mg/dl (74-100); Potassium 4.2 mmoL/L (3.5-5.1); Sodium 138 mmol/L (136-145)
[2022-06-27 16:21] LABS: Eosinophils % 1 % (0-3); Lymphocytes % 29 % (10-50); Monocytes % 5 % (2-9); Neutrophils % 65 % (42-76); Platelet Estimate Normal; RBC Morphology Normal; Total Cells Counted 100
== END ==
PROVIDERS: PCP Nurse Practitioner Family; Visit Provider Otolaryngology
DX: H92.01 Otalgia, right ear (principal)
CPT/HCPCS: 36415; 80053; 85007; 85014; 85018; 85048; 85049

== ENCOUNTER 2022-06-29 06:34 | Day surgery (SDC) | payer MEDICAID, SELFPAY ==
[2022-06-27 13:20] VITALS: BMI 32.1
[2022-06-29] VITALS (12 sets, daily range): BP systolic 128–158; BP diastolic 55–83; PULSE 58–86; RESP 16–22; TEMP 36–43; O2SAT 92–99
--- NOTE | 2022-06-29 07:06 | P.PN_ITS ---
[facility] Disclaimer: The information contained in this section may have been updated after the patient was seen, as this information can be updated by other users. Medical History Allergies Anxiety Arthritis Enlargement of right palatine tonsil GERD (gastroesophageal reflux disease) History of gastroesophageal reflux (GERD) Hypertension Presence of surgical screw in left hand Right ear pain Surgical History History of nasal surgery History of surgery History of surgery Family History Other Lung cancer Prostate cancer Social History Smoking Status: Former smoker pack-years: 5 years smoked: 5 how long ago did patient quit smokin second hand exposure: No alcohol intake: former substance use type: painkillers current occupational status: employed Travel in the last 8 weeks: None household members: significant other and children housing: house current occupational exposures/hazards: No caffeine: Yes [facility] Anesthesia Checklist Patient Identification Patient Identification: Arm Band Structural Data Admitted From: Home Planned Operative Procedure/s: Right Tonsillectomy Consent for Planned Operative Procedure(s) Verified: Yes Verified Documents: Surgical Consent and History and Physical NPO Status Verified Time NPO: 00:00 Additional verifications Anesthesia Reactions: No Hx Blood Transfusions: No Blood Transfusion Reaction: No Airway Assessment C-Spine Mobility Assessed: No TMJ Mobility Assessed: No Dentition: Poor Dentition Neurological Assessment Level of Consciousness: Awake and Alert Anesthesia Plan Anesthesia Risk discussed: Yes Anesthesia Plan: Verified ASA Class: II Anesthesia Type: General
--- NOTE | 2022-06-29 09:00 | SUR.OPER ---
0900-while receiving IV sedation medication, pt's PIV stopped working. Multiple attempts were made for PIV access. 20g PIV was placed in pt's LAC per Ultrasound guided assistance by ELOISE Jewell
--- NOTE | 2022-06-29 09:32 | EXP.OP.NOTE ---
Date of procedure: 06/29/22 Pre-op Diagnosis:: Right tonsillar mass Post-op Diagnosis:: Right tonsillar mass Procedure performed:: Right tonsillectomy Surgeon:: Mariusz Yates MD COMMUNICATIONS TOWER TECHNICIAN:: Other Anesthesia: GETA Estimated blood loss (mL): 20 Operative findings:: Findings consistent with chronically infected right tonsil Operative note:: The patient was brought to the operating room and after adequate general anesthesia the mouth was draped in the usual sterile fashion and a Pj mouth retractor applied. Right tonsillectomy was then performed in the plane defined by the tonsillar capsule and superior constrictor muscle and this was done with electrocautery to simultaneously dissected and cauterized. The right tonsillar fossa was then infiltrated with half percent Marcaine with epinephrine and the procedure concluded. All counts correct. Blood loss less than 20 mL and patient was sent to recovery in stable condition. Condition: stable Disposition: PACU Complications:: None
--- NOTE | 2022-06-29 09:45 | P.PNANES_ITS ---
[facility] Anesthesia Record Part I Anesthesia Record I Intake, IV Amount: 500 Estimated blood loss (mL): 5 Urine output (mL): 0 Blood Products used (#): none Blood Pressure: 146/72 SaO2: 92 Pulse Rate: 79 Respiratory Rate: 22 Temperature: 96.8 F Patient is:: Drowsy and Stable Stable to PACU at:: 09:40
--- NOTE | 2022-06-29 11:15 | P.PNANES_ITS ---
[facility] Anesthesia Record Part I Anesthesia Record I Intake, IV Amount: 600 Estimated blood loss (mL): 2 Urine output (mL): 0 Blood Products used (#): none Blood Pressure: 158/55 SaO2: 95 Pulse Rate: 86 Respiratory Rate: 16 Temperature: 97 F Patient is:: Drowsy and Stable Stable to PACU at:: 11:03
--- NOTE | 2022-06-30 12:45 | P.PNANES_ITS ---
[facility] Anesthesia Record Part II Anesthesia Record Part II Discharge Time: 10:10 Destination: Surgical Day Care (OP Surgery) PACU nurse assessment reviewed?: Yes Patient Condition:: Good Anesthesia Complications:: None Swallowing reflex intact?: Yes Cyanosis?: No Blood Pressure: 143/78 Pulse Rate: 68 Temperature: 97.9 F Mental Status: Alert & Oriented Pain level:: 5 Nausea and/or vomitting:: None Intake, IV Amount: 0
[2022-06-30 12:47] VITALS: BP 143/78; PULSE 68; TEMP 36.6
== END 2022-06-29 10:50 | disposition home or self-care (01) ==
PROVIDERS: PCP Nurse Practitioner Family; Visit Provider Otolaryngology
PROC: (CPT 42826; principal; 2022-06-29 08:00)
DX: J35.01 Chronic tonsillitis (principal); Z79.899 Other long term (current) drug therapy
CPT/HCPCS: 42826; 96374; J2405

== ENCOUNTER → 2022-11-24 15:39 | Outpatient (CLI) | payer MEDICAID, SELFPAY ==
[2022-11-24 18:34] LABS: Basophils % 0.6 % (0.1-2.0); Eosinophils # 0.2 K/mm3 (0.0-0.4); Eosinophils % 2.3 % (0.1-12.0); Hematocrit 43.2 % (42.0-52.0); Hemoglobin 13.8 g/dL (14.1-18.0); Lymphocytes % 30.2 % (10-50); Mean Corpuscular Hemoglobin 28.9 pg (27.0-31.2); Mean Corpuscular Volume 90.2 fl (80-94); Mean Platelet Volume 7.8 fl (7.4-10.4); Monocytes # 0.3 K/mm3 (0.1-1.0); Monocytes % 4.9 % (1.7-9.3); Neutrophils # 4.2 K/mm3 (1.8-7.8); Platelet Count 204 K/mm3 (142-424); Red Blood Count 4.78 M/mm3 (4.60-6.20); Red Cell Distribution Width 12.4 % (11.5-17.5); White Blood Count 6.8 K/mm3 (4.8-10.8)
[2022-11-24 18:56] LABS: Alanine Aminotransferase 47 U/L (12-78); Albumin Level 4.6 g/dl (3.5-5.0); Albumin/Globulin Ratio 1.7 (1.1-1.8); Alkaline Phosphatase 99 U/L (38-126); Anion Gap 11.4 mEq/L (5-15); Aspartate Amino Transferase 47 U/L (17-59); Bilirubin,Total 0.4 mg/dl (0.2-1.3); Blood Urea Nitrogen 14 mg/dl (9-20); Calcium 9.5 mg/dl (8.4-10.2); Carbon Dioxide 29 mmol/L (22.0-30.0); Chloride 104 mmol/L (98-107); Chol/HDL Ratio 2.2 (1-3.5); Cholesterol 194 mg/dl (140-200); Estimated Glomerular Filt Rate 123 ml/min (>60); GFR (African American) 148 ML/MIN (>60); Globulin 2.7 g/dL (1.3-3.2); Glucose 72 mg/dl (74-100); HDL Cholesterol 90 mg/dl (40-60); Potassium 4.4 mmoL/L (3.5-5.1); Sodium 140 mmol/L (136-145); Total Protein,Serum 7.3 g/dl (6.3-8.2); Triglycerides 86 mg/dl (30-150); VLDL Cholesterol 17 mg/dL (0-40)
[2022-11-24 19:08] LABS: Direct LDL Cholesterol 78.15 mg/dL (100-129)
[2022-11-24 19:11] LABS: 25-OH Vitamin D, Total 30.3 ng/mL (30-100)
[2022-11-24 19:13] LABS: T4 (Thyroxine) 9.1 ug/dl (5.53-11.0)
[2022-11-24 19:27] LABS: Thyroid Stimulating Hormone 1.26 uIU/mL (0.465-4.68)
== END ==
PROVIDERS: PCP Nurse Practitioner Family; Visit Provider Nurse Practitioner Family
DX: I10 Essential (primary) hypertension (principal); E66.9 Obesity, unspecified; Z68.34 Body mass index [BMI] 34.0-34.9, adult
CPT/HCPCS: 80053; 80061; 82306; 84436; 84443; 85025

== ENCOUNTER 2024-03-03 20:51 | Emergency (ER) | payer MEDICAID, SELFPAY ==
[2024-03-03] VITALS (7 sets, daily range): BP systolic 113–148; BP diastolic 59–93; PULSE 51–80; RESP 20; TEMP 36.9; O2SAT 95–100; BMI 32.1
--- NOTE | 2024-03-03 21:07 | CT_ITS ---
PROCEDURE INFORMATION: Exam: CT Abdomen And Pelvis With Contrast Exam date and time: 03/03/2024 11:39 PM Age: 43 years old Clinical indication: Abdominal pain; Other: Luq; Additional info: Epig pain, luq pain TECHNIQUE: Imaging protocol: Computed tomography of the abdomen and pelvis with contrast. Radiation optimization: All CT scans at this facility use at least one of these dose optimization techniques: automated exposure control; mA and/or kV adjustment per patient size (includes targeted exams where dose is matched to clinical indication); or iterative reconstruction. Contrast material: ISOVUE 370; Contrast volume: 75 ml; Contrast route: IV; COMPARISON: CR XR CHEST 2V 10/25/2023 11:09 AM FINDINGS: Lungs: There are several calcified granulomas within the right lower lobe. Esophagus: There is mild circumferential wall thickening distal thoracic esophagus which may represent esophagitis. Diaphragm: There is a very small hiatal hernia present. Liver: Normal. No mass. Gallbladder and biliary ducts: Normal. No calcified stones. No ductal dilation. Pancreas: Normal. No ductal dilation. Spleen: Normal. No splenomegaly. Adrenal glands: Normal. No mass. Kidneys and ureters: Normal. No hydronephrosis. Stomach and bowel: There are the few scattered colonic diverticuli without acute inflammation. No obstruction. No mucosal thickening. Appendix: No evidence of appendicitis. Intraperitoneal space: Unremarkable. No free air. No significant fluid collection. Vasculature: Unremarkable. No abdominal aortic aneurysm. Lymph nodes: Unremarkable. No enlarged lymph nodes. Urinary bladder: Unremarkable as visualized. Reproductive: The prostate gland is enlarged. Bones/joints: There are significant degenerative changes at L4-L5 and L5-S1. There are bilateral L4 pars defects with a grade 1 spondylolisthesis of L4 on L5 present. No acute fracture. Soft tissues: There is a tiny fat containing umbilical hernia. IMPRESSION: 1. Mild circumferential wall thickening of the distal thoracic esophagus may represent esophagitis. There is a very small hiatal hernia present as well. 2. Other nonemergent findings as noted.
[2024-03-03 21:24] LABS: Microscopic, Urine URINE MICROSCOPIC (MICROSCOPIC)
[2024-03-03 21:26] LABS: Appearance,Urine CLEAR (Clear); Bilirubin,Urine Negative (Negative); Blood, Urine Negative (Negative); Color,Urine YELLOW (Yellow); Glucose,Urine (UA) Negative (Negative); Ketones,Urine Negative (Negative); Leukocyte Esterase,Urine Negative (Negative); Nitrate,Urine Negative (Negative); Protein,Urine Negative (Negative); Specific Gravity, Urine <= 1.005 (1.005-1.030); Urobilinogen,Urine 0.2 EU/dl (0.2)
--- NOTE | 2024-03-03 21:30 | ECG_ITS ---
APPROVED REPORT Exam: Resting ECG HR:53 bpm ECG Measurements Heart Rate 53 AXES LA 203 P 51 QRSd 97 QRS 61 QT 398 T 60 QTc 380 Conclusion SINUS BRADYCARDIA BORDERLINE ECG UNCONFIRMED REPORT Electronically signed by : HANDY WRIGHT, 03/04/2024 06:37:03
[2024-03-03 21:44] LABS: Squamous Epithelial Cell,Urine Occasional #/hpf (0-5)
--- NOTE | 2024-03-03 22:58 | HMH.EDGENADL ---
Discharge Plan Disposition Patient Disposition: Home, Self-Care Condition: Good Prescriptions Prescriptions: No Action sildenafil 100 mg tablet 100 mg PO DAILY PRN (Reason: sexual activity) Qty: 30 0RF Rx Instructions: administer 30 minutes to 4 hours before activity buprenorphine-naloxone 8-2 mg tablet, sublingual 1 tab SL DAILY pantoprazole 40 mg tablet,delayed release (DR/EC) See Rx Instructions .ROUTE .COMPLEX Qty: 90 2RF Dose Instruction: TAKE ONE TABLET BY MOUTH ONCE A DAY FOR REFLUX Rx Instructions: TAKE ONE TABLET BY MOUTH ONCE A DAY FOR REFLUX cetirizine 10 mg tablet See Rx Instructions .ROUTE .COMPLEX Qty: 90 2RF Dose Instruction: TAKE ONE TABLET BY MOUTH ONCE A DAY Rx Instructions: TAKE ONE TABLET BY MOUTH ONCE A DAY lisinopril 5 mg tablet See Rx Instructions .ROUTE .COMPLEX Qty: 90 1RF Dose Instruction: TAKE ONE TABLET BY MOUTH ONCE A DAY Rx Instructions: TAKE ONE TABLET BY MOUTH ONCE A DAY Referrals Follow up/Referrals: Samuel Bran MD [Physician] - See instructions (Call tomorrow to schedule an appointment) Jaime Napoles APRN [Primary Care Provider] - See instructions Activity Restrictions/Add. Instructions Additional Instructions/Restrictions: Continue your protonix. Call GI for an appointment tomorrow. Return to the ED if you have increased pain, fever or vomiting. Clinical Impressions Clinical Impression: Esophagitis Instructions Patient Instructions: DI for Acute Abdominal Pain, DI for Esophagitis Print Language Print Language: Maltese Discharge ED Provider: Herb Locke Adult HPI General Chief complaint: Abdominal Pain Stated complaint: stomach pain,vomiting Time Seen by Provider: 03/03/24 21:01 Mode of Arrival: Ambulatory Source of Information: Patient Limitations: No Limitations Description of Symptoms (Recalled from ER Triage Doc. by RN): pt reports left sided abdomen pain that began 1 week ago but became increasing worse today after eating around 8pm. pt made himself vomit and reports he got some relief afterwards. Related Data Home Medications ?Medication ?Instructions ?Recorded ?Confirmed buprenorphine 8 mg-naloxone 2 mg 1 tab sublingual DAILY . 07/03/19 10/25/23 sublingual tablet Previous Rx's ?Medication ?Instructions ?Recorded sildenafil 100 mg tablet 100 mg PO DAILY PRN sexual 10/25/23 activity #30 tabs cetirizine 10 mg tablet See Rx Instructions .Route 12/29/23 .COMPLEX #90 tabs pantoprazole 40 mg tablet,delayed See Rx Instructions .Route 12/29/23 release .COMPLEX #90 tabs lisinopril 5 mg tablet See Rx Instructions .Route 02/27/24 .COMPLEX #90 tabs Allergies Allergy/AdvReac Type Severity Reaction Status Date / Time No Known Allergies Allergy Verified 10/25/23 08:37 [facility] Disclaimer: The information contained in this section may have been updated after the patient was seen, as this information can be updated by other users. Medical History (Updated 03/04/24 @ 00:22 by ANNIE Logan) Right shoulder strain Anxiety Arthritis History of gastroesophageal reflux (GERD) Allergies Enlargement of right palatine tonsil Right ear pain Presence of surgical screw in left hand GERD (gastroesophageal reflux disease) Hypertension Surgical History Status post tonsillectomy History of surgery History of surgery History of nasal surgery Family History Other Lung cancer Prostate cancer Social History Smoking Status: Never smoker years smoked: 5 how long ago did patient quit smokin second hand exposure: No alcohol intake: former substance use type: painkillers current occupational status: employed Travel in the last 8 weeks: None housing: house current occupational exposures/hazards: No caffeine: Yes Other Medical History Have you received the Flu Vaccine for this season: Yes Have you received the Pneumonia Vaccine: No Medical Decision Making Medical Records Screening: Per USPSTF and CDC recommendations, given the prevalence of disease in our region, it is our hospital?s policy to screen for HIV and viral Hepatitis for all patients aged 18 and over and those with ongoing risk factors. Vital Signs: 03/03/24 20:53 03/03/24 21:25 03/03/24 21:30 Temperature 98.5 F Temperature Source Oral Pulse Rate 76 58 L Pulse Rate [Right] 80 Respiratory Rate 20 Blood Pressure 133/83 124/71 Blood Pressure [Right Arm] 148/93 H Blood Pressure Mean [Right Arm] 111 02 Sat by Pulse Oximetry 100 95 95 03/03/24 22:06 03/03/24 22:30 03/03/24 23:00 Temperature Temperature Source Pulse Rate 63 51 L 53 L Pulse Rate [Right] Respiratory Rate Blood Pressure 126/72 136/80 113/59 L Blood Pressure [Right Arm] Blood Pressure Mean [Right Arm] 02 Sat by Pulse Oximetry 98 98 95 03/03/24 23:31 03/04/24 00:00 Temperature Temperature Source Pulse Rate 66 44 L Pulse Rate [Right] Respiratory Rate Blood Pressure 117/77 116/67 Blood Pressure [Right Arm] Blood Pressure Mean [Right Arm] 02 Sat by Pulse Oximetry 96 95 Lab Data Lab Results 03/03/24 21:20: Urine Color Yellow, Urine Appearance Clear, Urine pH 6.0, Ur Specific [place] <= 1.005, Urine Protein Negative, Urine Glucose (UA) Negative, Urine Ketones Negative, Urine Blood Negative, Urine Nitrate Negative, Urine Bilirubin Negative, Urine Urobilinogen 0.2, Ur Leukocyte Esterase Negative, Urine RBC None, Urine WBC None, Ur Squamous Epith Cells Occasional, Urine Bacteria None 03/03/24 22:35: WBC 7.7, RBC 4.57 L, Hgb 14.3, Hct 40.5 L, MCV 88.5, MCH 31.2, MCHC 35.2, RDW 12.8, Plt Count 171, MPV 7.8, Neut % (Auto) 81.2 H, Lymph % (Auto) 13.6, [place] % (Auto) 4.0, Eos % (Auto) 0.7, Baso % (Auto) 0.5, Neut # (Auto) 6.3, Lymph # (Auto) 1.1, [place] # (Auto) 0.3, Eos # (Auto) 0.1, Baso # (Auto) 0.0, Sodium 139, Potassium 3.4 L, Chloride 106, Carbon Dioxide 30, Anion Gap 6.4, BUN 12, Creatinine 0.80, Estimated Creat Clear 172, Estimated GFR 105, Est GFR ( Amer) 126, Glucose 86, Calcium 8.9, Total Bilirubin 0.6, AST 54, ALT 52, Alkaline Phosphatase 65, Troponin I < 0.01, Total Protein 6.5, Albumin 4.1, Globulin 2.4, Albumin/Globulin Ratio 1.7, Lipase 70, HIV 1&2 Antibody Rapid Nonreactive 03/03/24 22:35 03/03/24 22:35 Orders (Tests/Meds): ED MEDICATIONS Generic Name Dose Route Start Last Admin Trade Name Freq PRN Reason Stop Dose Admin Sodium Chloride 10 ml 03/03/24 21:07 Sodium Chloride 0.9% 10ml Flush Syringe IV 04/02/24 21:06 NEEDED PRN Maintain IV Site Discontinued Medications Generic Name Dose Route Start Last Admin Trade Name Freq PRN Reason Stop Dose Admin Belladonna Alkaloids 60 ml 03/03/24 23:50 03/04/24 00:21 Belladonna Alkaloids 60 Ml Ml PO 03/03/24 23:51 60 ml ONCE ONE Administration Iopamidol 75 ml 03/03/24 23:39 03/03/24 23:42 Iopamidol-370 (76%);100ml Bottle IV 03/03/24 23:40 75 ml ONCE ONE Administration Sodium Chloride 10 ml 03/03/24 23:39 03/03/24 23:42 Sodium Chloride 0.9% 10ml Syr (Rad Only) IV 03/03/24 23:40 10 ml ONCE ONE Administration ORDERS Category Date Time Status CT abdomen pelvis w con Stat Cat Scan 03/03/24 21:07 Completed Complete Blood Count Auto Diff Stat Lab 03/03/24 22:35 Completed Comprehensive Metabolic Panel Stat Lab 03/03/24 22:35 Completed HIV (1&2) Antibody Rapid Stat Lab 03/03/24 22:35 Completed Hep C Ab with Reflex to RNA Stat Lab 03/03/24 22:35 Received Lipase Stat Lab 03/03/24 22:35 Completed Troponin I Q3H Lab 03/04/24 00:30 Ordered Troponin I Q3H Lab 03/04/24 03:30 Ordered Troponin I Stat Lab 03/03/24 22:35 Completed Urinalysis and Microscopic Stat Lab 03/03/24 21:20 Completed ECG Data Tracing #1: I reviewed this ECG and interpreted as documented below: (Sinus bradycardia 53 beats a minute. MT interval 203, QRS 97, QTc 380. Normal axis. No ischemic change.)
[2024-03-03 23:12] LABS: Basophils % 0.5 % (0.1-2.0); Eosinophils # 0.1 K/mm3 (0.0-0.4); Eosinophils % 0.7 % (0.1-12.0); Hematocrit 40.5 % (42.0-52.0); Hemoglobin 14.3 g/dL (14.1-18.0); Lymphocytes # 1.1 K/mm3 (0.7-4.5); Lymphocytes % 13.6 % (10-50); Mean Corpuscular HGB Conc 35.2 g/dL (31.8-35.4); Mean Corpuscular Hemoglobin 31.2 pg (27.0-31.2); Mean Corpuscular Volume 88.5 fl (80-94); Mean Platelet Volume 7.8 fl (7.4-10.4); Monocytes # 0.3 K/mm3 (0.1-1.0); Neutrophils # 6.3 K/mm3 (1.8-7.8); Neutrophils % 81.2 % (37.0-80.0); Platelet Count 171 K/mm3 (142-424); Red Blood Count 4.57 M/mm3 (4.60-6.20); Red Cell Distribution Width 12.8 % (11.5-17.5); White Blood Count 7.7 K/mm3 (4.8-10.8)
[2024-03-03 23:27] LABS: Alanine Aminotransferase 52 U/L (12-78); Albumin Level 4.1 g/dl (3.5-5.0); Albumin/Globulin Ratio 1.7 (1.1-1.8); Alkaline Phosphatase 65 U/L (38-126); Anion Gap 6.4 mEq/L (5-15); Aspartate Amino Transferase 54 U/L (17-59); Bilirubin,Total 0.6 mg/dl (0.2-1.3); Blood Urea Nitrogen 12 mg/dl (9-20); Calcium 8.9 mg/dl (8.4-10.2); Carbon Dioxide 30 mmol/L (22.0-30.0); Chloride 106 mmol/L (98-107); Creatinine Clearance Estimated 172 mL/min (50-200); Estimated Glomerular Filt Rate 105 ml/min (>60); GFR (African American) 126 ML/MIN (>60); Globulin 2.4 g/dL (1.3-3.2); Glucose 86 mg/dl (74-100); Lipase 70 U/L (23-300); Potassium 3.4 mmoL/L (3.5-5.1); Sodium 139 mmol/L (136-145); Total Protein,Serum 6.5 g/dl (6.3-8.2)
[2024-03-03 23:39] LABS: Troponin I < 0.01 ng/ml (0.00-0.034)
--- NOTE | 2024-03-03 23:40 | ED_ITS ---
Discharge Plan Disposition Patient Disposition: Home, Self-Care Condition: Good Prescriptions Prescriptions: No Action sildenafil 100 mg tablet 100 mg PO DAILY PRN (Reason: sexual activity) Qty: 30 0RF Rx Instructions: administer 30 minutes to 4 hours before activity buprenorphine-naloxone 8-2 mg tablet, sublingual 1 tab SL DAILY pantoprazole 40 mg tablet,delayed release (DR/EC) See Rx Instructions .ROUTE .COMPLEX Qty: 90 2RF Dose Instruction: TAKE ONE TABLET BY MOUTH ONCE A DAY FOR REFLUX Rx Instructions: TAKE ONE TABLET BY MOUTH ONCE A DAY FOR REFLUX cetirizine 10 mg tablet See Rx Instructions .ROUTE .COMPLEX Qty: 90 2RF Dose Instruction: TAKE ONE TABLET BY MOUTH ONCE A DAY Rx Instructions: TAKE ONE TABLET BY MOUTH ONCE A DAY lisinopril 5 mg tablet See Rx Instructions .ROUTE .COMPLEX Qty: 90 1RF Dose Instruction: TAKE ONE TABLET BY MOUTH ONCE A DAY Rx Instructions: TAKE ONE TABLET BY MOUTH ONCE A DAY Referrals Follow up/Referrals: Samuel Bran MD [Physician] - See instructions (Call tomorrow to schedule an appointment) Jaime Napoles APRN [Primary Care Provider] - See instructions Activity Restrictions/Add. Instructions Additional Instructions/Restrictions: Continue your protonix. Call GI for an appointment tomorrow. Return to the ED if you have increased pain, fever or vomiting. Clinical Impressions Clinical Impression: Esophagitis Instructions Patient Instructions: DI for Acute Abdominal Pain, DI for Esophagitis Print Language Print Language: Frisian Discharge ED Provider: Herb Locke General Adult HPI <ANNIE Logan - Last Filed: 03/04/24 00:26> General Chief complaint: Abdominal Pain Stated complaint: stomach pain,vomiting Time Seen by Provider: 03/03/24 21:01 Mode of Arrival: Ambulatory Source of Information: Patient Limitations: No Limitations Description of Symptoms (Recalled from ER Triage Doc. by RN): pt reports left sided abdomen pain that began 1 week ago but became increasing worse today after eating around 8pm. pt made himself vomit and reports he got some relief afterwards. History of Present Illness HPI narrative: Patient presents complaining of left upper quadrant and epigastric discomfort. He reports that he has had intermittent pain for the past week however symptoms became worse after eating dinner tonight. Denies any fever, vomiting diarrhea or constipation. He describes the pain as sharp and burning. Denies any urinary symptoms. Denies any exacerbating or alleviating factors. MD complaint: Abdominal pain Onset (ago): week(s) (1) Location: abdomen Radiation: non-radiation Severity: moderate Quality: burning and sharp Consistency: intermittent Relieving factors: none Exacerbating factors: eating Associated symptoms: negative fever/chills or nausea/vomiting Treatments prior to arrival: none Related Data Home Medications ?Medication ?Instructions ?Recorded ?Confirmed buprenorphine 8 mg-naloxone 2 mg 1 tab sublingual DAILY . 07/03/19 10/25/23 sublingual tablet Previous Rx's ?Medication ?Instructions ?Recorded sildenafil 100 mg tablet 100 mg PO DAILY PRN sexual 10/25/23 activity #30 tabs cetirizine 10 mg tablet See Rx Instructions .Route 12/29/23 .COMPLEX #90 tabs pantoprazole 40 mg tablet,delayed See Rx Instructions .Route 12/29/23 release .COMPLEX #90 tabs lisinopril 5 mg tablet See Rx Instructions .Route 02/27/24 .COMPLEX #90 tabs Allergies Allergy/AdvReac Type Severity Reaction Status Date / Time No Known Allergies Allergy Verified 10/25/23 08:37 PENDING SALE TO [facility] <ANNIE Logan - Last Filed: 03/04/24 00:26> PENDING SALE TO [facility] Disclaimer: The information contained in this section may have been updated after the patient was seen, as this information can be updated by other users. Medical History (Updated 03/04/24 @ 00:22 by ANNIE Logan) Right shoulder strain Anxiety Arthritis History of gastroesophageal reflux (GERD) Allergies Enlargement of right palatine tonsil Right ear pain Presence of surgical screw in left hand GERD (gastroesophageal reflux disease) Hypertension Surgical History Status post tonsillectomy History of surgery History of surgery History of nasal surgery Family History Other Lung cancer Prostate cancer Social History Smoking Status: Never smoker years smoked: 5 how long ago did patient quit smokin second hand exposure: No alcohol intake: former substance use type: painkillers current occupational status: employed Travel in the last 8 weeks: None housing: house current occupational exposures/hazards: No caffeine: Yes Other Medical History Have you received the Flu Vaccine for this season: Yes Have you received the Pneumonia Vaccine: No <ANNIE Logan - Last Filed: 03/04/24 00:26> ROS Obtained: Yes All systems reviewed & no additional complaints except as documented Physical Exam <ANNIE Logan - Last Filed: 03/04/24 00:26> General General appearance: alert and in no apparent distress Head Head exam: atraumatic and normocephalic Eye Eye exam: Present normal appearance and EOMI Chest Chest inspection: Present symmetric chest wall rise Respiratory Respiratory exam: Present normal lung sounds bilaterally; Absent wheezes or stridor Cardiovascular Cardiovascular exam: Present regular rate and normal rhythm; Absent systolic murmur Abdominal Exam Abdominal exam: Present soft, tenderness (Epigastric and left upper quad) and normal bowel sounds; Absent distention, guarding or rebound Extremities Exam Extremities exam: Present full ROM Neurological Exam Neurological exam: Present alert and oriented X3 Psychiatric Psychiatric exam: Present normal affect and normal mood Skin Skin exam: Present warm, dry and intact Medical Decision Making <ANNIE Logan Last Filed: 03/04/24 00:26> Medical Records Screening: Per USPSTF and CDC recommendations, given the prevalence of disease in our region, it is our hospital?s policy to screen for HIV and viral Hepatitis for all patients aged 18 and over and those with ongoing risk factors. Sergio Inquiry Pt receiving controlled substance: No Sergio was queried for this patient: No Vital Signs: 03/03/24 20:53 03/03/24 21:25 03/03/24 21:30 Temperature 98.5 F Temperature Source Oral Pulse Rate 76 58 L Pulse Rate [Right] 80 Respiratory Rate 20 Blood Pressure 133/83 124/71 Blood Pressure [Right Arm] 148/93 H Blood Pressure Mean [Right Arm] 111 02 Sat by Pulse Oximetry 100 95 95 03/03/24 22:06 03/03/24 22:30 03/03/24 23:00 Temperature Temperature Source Pulse Rate 63 51 L 53 L Pulse Rate [Right] Respiratory Rate Blood Pressure 126/72 136/80 113/59 L Blood Pressure [Right Arm] Blood Pressure Mean [Right Arm] 02 Sat by Pulse Oximetry 98 98 95 03/03/24 23:31 03/04/24 00:00 03/04/24 00:40 Temperature 98.7 F Temperature Source Oral Pulse Rate 66 44 L 46 L Pulse Rate [Right] Respiratory Rate 16 Blood Pressure 117/77 116/67 116/67 Blood Pressure [Right Arm] Blood Pressure Mean [Right Arm] 02 Sat by Pulse Oximetry 96 95 Lab Data Lab Results 03/03/24 21:20: Urine Color Yellow, Urine Appearance Clear, Urine pH 6.0, Ur Specific [place] <= 1.005, Urine Protein Negative, Urine Glucose (UA) Negative, Urine Ketones Negative, Urine Blood Negative, Urine Nitrate Negative, Urine Bilirubin Negative, Urine Urobilinogen 0.2, Ur Leukocyte Esterase Negative, Urine RBC None, Urine WBC None, Ur Squamous Epith Cells Occasional, Urine Bacteria None 03/03/24 22:35: WBC 7.7, RBC 4.57 L, Hgb 14.3, Hct 40.5 L, MCV 88.5, MCH 31.2, MCHC 35.2, RDW 12.8, Plt Count 171, MPV 7.8, Neut % (Auto) 81.2 H, Lymph % (Auto) 13.6, [place] % (Auto) 4.0, Eos % (Auto) 0.7, Baso % (Auto) 0.5, Neut # (Auto) 6.3, Lymph # (Auto) 1.1, [place] # (Auto) 0.3, Eos # (Auto) 0.1, Baso # (Auto) 0.0, Sodium 139, Potassium 3.4 L, Chloride 106, Carbon Dioxide 30, Anion Gap 6.4, BUN 12, Creatinine 0.80, Estimated Creat Clear 172, Estimated GFR 105, Est GFR ( Amer) 126, Glucose 86, Calcium 8.9, Total Bilirubin 0.6, AST 54, ALT 52, Alkaline Phosphatase 65, Troponin I < 0.01, Total Protein 6.5, Albumin 4.1, Globulin 2.4, Albumin/Globulin Ratio 1.7, Lipase 70, HIV 1&2 Antibody Rapid Nonreactive 03/03/24 22:35 03/03/24 22:35 Orders (Tests/Meds): ED MEDICATIONS Discontinued Medications Generic Name Dose Route Start Last Admin Trade Name Freq PRN Reason Stop Dose Admin Belladonna Alkaloids 60 ml 03/03/24 23:50 03/04/24 00:21 Belladonna Alkaloids 60 Ml Ml PO 03/03/24 23:51 60 ml ONCE ONE Administration Iopamidol 75 ml 03/03/24 23:39 03/03/24 23:42 Iopamidol-370 (76%);100ml Bottle IV 03/03/24 23:40 75 ml ONCE ONE Administration Sodium Chloride 10 ml 03/03/24 21:07 Sodium Chloride 0.9% 10ml Flush Syringe IV 04/02/24 21:06 NEEDED PRN Maintain IV Site Sodium Chloride 10 ml 03/03/24 23:39 03/03/24 23:42 Sodium Chloride 0.9% 10ml Syr (Rad Only) IV 03/03/24 23:40 10 ml ONCE ONE Administration ORDERS Category Date Time Status CT abdomen pelvis w con Stat Cat Scan 03/03/24 21:07 Completed Complete Blood Count Auto Diff Stat Lab 03/03/24 22:35 Completed Comprehensive Metabolic Panel Stat Lab 03/03/24 22:35 Completed HIV (1&2) Antibody Rapid Stat Lab 03/03/24 22:35 Completed Hep C Ab with Reflex to RNA Stat Lab 03/03/24 22:35 Received Lipase Stat Lab 03/03/24 22:35 Completed Troponin I Stat Lab 03/03/24 22:35 Completed Urinalysis and Microscopic Stat Lab 03/03/24 21:[address] Scan: Abdomen and Pelvis Time Received: 00:[address] Reviewed: Yes I have reviewed the patient's CT results Findings Narrative: IMPRESSION: 1. Mild circumferential wall thickening of the distal thoracic esophagus may represent esophagitis. There is a very small hiatal hernia present as well. 2. Other nonemergent findings as noted. US Data ED US Reviewed: Yes I have reviewed the patient's US results Medical Decision Narrative: In summary patient is a 43-year-old who presents the emergency department for evaluation of upper abdominal. Patient is hemodynamically stable upon arrival, afebrile. Epigastric and left upper quadrant tenderness on exam. Differential diagnosis includes pancreatitis, gastritis, diverticulitis, ACS, gas. Initial workup will be conducted with labs including CBC, CMP, lipase, troponin, EKG as well as CT abdomen and pelvis. Declines any pain medication. Initial workup reviewed by me unremarkable labs, esophagitis and hiatal hernia on CT scan. Upon repeat evaluation patient had improvement of symptoms after GI cocktail. Given this patient is appropriate for discharge with follow-up with GI. <Herb Locke MD - Last Filed: 03/04/24 00:55> Vital Signs: 03/03/24 20:53 03/03/24 21:25 03/03/24 21:30 Temperature 98.5 F Temperature Source Oral Pulse Rate 76 58 L Pulse Rate [Right] 80 Respiratory Rate 20 Blood Pressure 133/83 124/71 Blood Pressure [Right Arm] 148/93 H Blood Pressure Mean [Right Arm] 111 02 Sat by Pulse Oximetry 100 95 95 03/03/24 22:06 03/03/24 22:30 03/03/24 23:00 Temperature Temperature Source Pulse Rate 63 51 L 53 L Pulse Rate [Right] Respiratory Rate Blood Pressure 126/72 136/80 113/59 L Blood Pressure [Right Arm] Blood Pressure Mean [Right Arm] 02 Sat by Pulse Oximetry 98 98 95 03/03/24 23:31 03/04/24 00:00 03/04/24 00:40 Temperature 98.7 F Temperature Source Oral Pulse Rate 66 44 L 46 L Pulse Rate [Right] Respiratory Rate 16 Blood Pressure 117/77 116/67 116/67 Blood Pressure [Right Arm] Blood Pressure Mean [Right Arm] 02 Sat by Pulse Oximetry 96 95 Lab Data Lab Results 03/03/24 21:20: Urine Color Yellow, Urine Appearance Clear, Urine pH 6.0, Ur Specific [place] <= 1.005, Urine Protein Negative, Urine Glucose (UA) Negative, Urine Ketones Negative, Urine Blood Negative, Urine Nitrate Negative, Urine Bilirubin Negative, Urine Urobilinogen 0.2, Ur Leukocyte Esterase Negative, Urine RBC None, Urine WBC None, Ur Squamous Epith Cells Occasional, Urine Bacteria None 03/03/24 22:35: WBC 7.7, RBC 4.57 L, Hgb 14.3, Hct 40.5 L, MCV 88.5, MCH 31.2, MCHC 35.2, RDW 12.8, Plt Count 171, MPV 7.8, Neut % (Auto) 81.2 H, Lymph % (Auto) 13.6, [place] % (Auto) 4.0, Eos % (Auto) 0.7, Baso % (Auto) 0.5, Neut # (Auto) 6.3, Lymph # (Auto) 1.1, [place] # (Auto) 0.3, Eos # (Auto) 0.1, Baso # (Auto) 0.0, Sodium 139, Potassium 3.4 L, Chloride 106, Carbon Dioxide 30, Anion Gap 6.4, BUN 12, Creatinine 0.80, Estimated Creat Clear 172, Estimated GFR 105, Est GFR ( Amer) 126, Glucose 86, Calcium 8.9, Total Bilirubin 0.6, AST 54, ALT 52, Alkaline Phosphatase 65, Troponin I < 0.01, Total Protein 6.5, Albumin 4.1, Globulin 2.4, Albumin/Globulin Ratio 1.7, Lipase 70, HIV 1&2 Antibody Rapid Nonreactive Orders (Tests/Meds): ED MEDICATIONS Discontinued Medications Generic Name Dose Route Start Last Admin Trade Name Freq PRN Reason Stop Dose Admin Belladonna Alkaloids 60 ml 03/03/24 23:50 03/04/24 00:21 Belladonna Alkaloids 60 Ml Ml PO 03/03/24 23:51 60 ml ONCE ONE Administration Iopamidol 75 ml 03/03/24 23:39 03/03/24 23:42 Iopamidol-370 (76%);100ml Bottle IV 03/03/24 23:40 75 ml ONCE ONE Administration Sodium Chloride 10 ml 03/03/24 21:07 Sodium Chloride 0.9% 10ml Flush Syringe IV 04/02/24 21:06 NEEDED PRN Maintain IV Site Sodium Chloride 10 ml 03/03/24 23:39 03/03/24 23:42 Sodium Chloride 0.9% 10ml Syr (Rad Only) IV 03/03/24 23:40 10 ml ONCE ONE Administration ORDERS Category Date Time Status CT abdomen pelvis w con Stat Cat Scan 03/03/24 21:07 Completed Complete Blood Count Auto Diff Stat Lab 03/03/24 22:35 Completed Comprehensive Metabolic Panel Stat Lab 03/03/24 22:35 Completed HIV (1&2) Antibody Rapid Stat Lab 03/03/24 22:35 Completed Hep C Ab with Reflex to RNA Stat Lab 03/03/24 22:35 Received Lipase Stat Lab 03/03/24 22:35 Completed Troponin I Stat Lab 03/03/24 22:35 Completed Urinalysis and Microscopic Stat Lab 03/03/24 21:20 Completed ECG Data Tracing #1: I reviewed this ECG and interpreted as documented below: Sinus bradycardia, rate of 53, no concerning ST or T wave changes, no evidence of arrhythmia ECG initial impression date: 03/03/24 ECG initial impression time: 22:10 HEART Score History (anamnesis): Slightly suspicious ECG: Normal Age: 45-65 years Risk factors: 1-2 risk factors Troponin: </= normal limit HEART Score: 2 Medical Decision Narrative: In summary patient is a 43-year-old who presents the emergency department for evaluation of upper abdominal. Patient is hemodynamically stable upon arrival, afebrile. Epigastric and left upper quadrant tenderness on exam. Differential diagnosis includes pancreatitis, gastritis, diverticulitis, ACS, gas. Initial workup will be conducted with labs including CBC, CMP, lipase, troponin, EKG as well as CT abdomen and pelvis. Declines any pain medication. Initial workup reviewed by me unremarkable labs, esophagitis and hiatal hernia on CT scan. Upon repeat evaluation patient had improvement of symptoms after GI cocktail. Given this patient is appropriate for discharge with follow-up with GI. I was consulted by the CHER, and we discussed the complexity of the problems being addressed. I approved the treatment and management plan for this patient?s care in the Emergency Department, thus performing a substantive portion of the medical decision making. Herb Locke MD Labs independently interpreted by me, urine without evidence of infection, initial troponin negative, minimal hypokalemia, otherwise unremarkable labs. CT imaging interpreted by me and shows some thickening in the lower esophagus consistent with mild esophagitis. Repeat troponin was considered but deemed unnecessary given history and exam. These findings were communicated patient, he is already on pantoprazole. He was encouraged to follow-up PCP for consideration of GI evaluation. <Colt Agrawal MD - Last Filed: 03/05/24 07:34> Vital Signs: 03/03/24 20:53 03/03/24 21:25 03/03/24 21:30 Temperature 98.5 F Temperature Source Oral Pulse Rate 76 58 L Pulse Rate [Right] 80 Respiratory Rate 20 Blood Pressure 133/83 124/71 Blood Pressure [Right Arm] 148/93 H Blood Pressure Mean [Right Arm] 111 02 Sat by Pulse Oximetry 100 95 95 03/03/24 22:06 03/03/24 22:30 03/03/24 23:00 Temperature Temperature Source Pulse Rate 63 51 L 53 L Pulse Rate [Right] Respiratory Rate Blood Pressure 126/72 136/80 113/59 L Blood Pressure [Right Arm] Blood Pressure Mean [Right Arm] 02 Sat by Pulse Oximetry 98 98 95 03/03/24 23:31 03/04/24 00:00 03/04/24 00:40 Temperature 98.7 F Temperature Source Oral Pulse Rate 66 44 L 46 L Pulse Rate [Right] Respiratory Rate 16 Blood Pressure 117/77 116/67 116/67 Blood Pressure [Right Arm] Blood Pressure Mean [Right Arm] 02 Sat by Pulse Oximetry 96 95 Lab Data Lab Results 03/03/24 21:20: Urine Color Yellow, Urine Appearance Clear, Urine pH 6.0, Ur Specific [place] <= 1.005, Urine Protein Negative, Urine Glucose (UA) Negative, Urine Ketones Negative, Urine Blood Negative, Urine Nitrate Negative, Urine Bilirubin Negative, Urine Urobilinogen 0.2, Ur Leukocyte Esterase Negative, Urine RBC None, Urine WBC None, Ur Squamous Epith Cells Occasional, Urine Bacteria None 03/03/24 22:35: WBC 7.7, RBC 4.57 L, Hgb 14.3, Hct 40.5 L, MCV 88.5, MCH 31.2, MCHC 35.2, RDW 12.8, Plt Count 171, MPV 7.8, Neut % (Auto) 81.2 H, Lymph % (Auto) 13.6, [place] % (Auto) 4.0, Eos % (Auto) 0.7, Baso % (Auto) 0.5, Neut # (Auto) 6.3, Lymph # (Auto) 1.1, [place] # (Auto) 0.3, Eos # (Auto) 0.1, Baso # (Auto) 0.0, Sodium 139, Potassium 3.4 L, Chloride 106, Carbon Dioxide 30, Anion Gap 6.4, BUN 12, Creatinine 0.80, Estimated Creat Clear 172, Estimated GFR 105, Est GFR ( Amer) 126, Glucose 86, Calcium 8.9, Total Bilirubin 0.6, AST 54, ALT 52, Alkaline Phosphatase 65, Troponin I < 0.01, Total Protein 6.5, Albumin 4.1, Globulin 2.4, Albumin/Globulin Ratio 1.7, Lipase 70, HIV 1&2 Antibody Rapid Nonreactive Orders (Tests/Meds): ED MEDICATIONS Discontinued Medications Generic Name Dose Route Start Last Admin Trade Name Freq PRN Reason Stop Dose Admin Belladonna Alkaloids 60 ml 03/03/24 23:50 03/04/24 00:21 Belladonna Alkaloids 60 Ml Ml PO 03/03/24 23:51 60 ml ONCE ONE Administration Iopamidol 75 ml 03/03/24 23:39 03/03/24 23:42 Iopamidol-370 (76%);100ml Bottle IV 03/03/24 23:40 75 ml ONCE ONE Administration Sodium Chloride 10 ml 03/03/24 21:07 Sodium Chloride 0.9% 10ml Flush Syringe IV 04/02/24 21:06 NEEDED PRN Maintain IV Site Sodium Chloride 10 ml 03/03/24 23:39 03/03/24 23:42 Sodium Chloride 0.9% 10ml Syr (Rad Only) IV 03/03/24 23:40 10 ml ONCE ONE Administration ORDERS Category Date Time Status CT abdomen pelvis w con Stat Cat Scan 03/03/24 21:07 Completed Complete Blood Count Auto Diff Stat Lab 03/03/24 22:35 Completed Comprehensive Metabolic Panel Stat Lab 03/03/24 22:35 Completed HIV (1&2) Antibody Rapid Stat Lab 03/03/24 22:35 Completed Hep C Ab with Reflex to RNA Stat Lab 03/03/24 22:35 Received Lipase Stat Lab 03/03/24 22:35 Completed Troponin I Stat Lab 03/03/24 22:35 Completed Urinalysis and Microscopic Stat Lab 03/03/24 21:20 Completed HEART Score HEART Score: 2 Medical Decision Narrative: In summary patient is a 43-year-old who presents the emergency department for evaluation of upper abdominal. Patient is hemodynamically stable upon arrival, afebrile. Epigastric and left upper quadrant tenderness on exam. Differential diagnosis includes pancreatitis, gastritis, diverticulitis, ACS, gas. Initial workup will be conducted with labs including CBC, CMP, lipase, troponin, EKG as well as CT abdomen and pelvis. Declines any pain medication. Initial workup reviewed by me unremarkable labs, esophagitis and hiatal hernia on CT scan. Upon repeat evaluation patient had improvement of symptoms after GI cocktail. Given this patient is appropriate for discharge with follow-up with GI. I was consulted by the CHER, and we discussed the complexity of the problems being addressed. I approved the treatment and management plan for this patient?s care in the Emergency Department, thus performing a substantive portion of the medical decision making. Herb Locke MD Labs independently interpreted by me, urine without evidence of infection, initial troponin negative, minimal hypokalemia, otherwise unremarkable labs. CT imaging interpreted by me and shows some thickening in the lower esophagus consistent with mild esophagitis. Repeat troponin was considered but deemed unnecessary given history and exam. These findings were communicated patient, he is already on pantoprazole. He was encouraged to follow-up PCP for consideration of GI evaluation. Critical Care <ANNIE Logan - Last Filed: 03/04/24 00:26> Critical Care Time Critical Care Time: No
[2024-03-03] MEDS: IOPAMIDOL-370 (76%);100ML BOTTLE 75 ML IV (23:42)
[2024-03-03] MEDS: SODIUM CHLORIDE 0.9% 10ML SYR (RAD ONLY) 10 ML IV (23:42)
[2024-03-04] VITALS: BP 116/67; PULSE 44; O2SAT 95
[2024-03-04] MEDS: BELLADONNA ALKALOIDS 60 ML ML PO (00:21)
[2024-03-04 00:22] LABS: HIV (1&2) Antibody Rapid NONREACTIVE (NONREACTIVE)
[2024-03-04 00:40] VITALS: BP 116/67; PULSE 46; RESP 16; TEMP 37.1; O2SAT 99
[2024-03-05 08:19] LABS: HCV Ab Non Reactive (Non Reactive)
== END 2024-03-04 00:53 | disposition home or self-care (01) ==
PROVIDERS: Emergency Medicine; Physician Assistant; Emergency Provider Emergency Medicine; PCP Nurse Practitioner Family
DX: K20.90 Esophagitis, unspecified without bleeding (principal); R10.12 Left upper quadrant pain; R11.11 Vomiting without nausea
CPT/HCPCS: 74177; 80053; 81001; 83690; 84484; 85025; 86803; 87389; 93005; 99285; Q9967

== ENCOUNTER 2024-05-29 07:01 | Day surgery (SDC) | payer MEDICAID, SELFPAY ==
[2024-05-24 14:24] VITALS: BMI 33.5
[2024-05-29 08:24] VITALS: BP 133/84; PULSE 59; RESP 16; TEMP 36.2; O2SAT 99
--- NOTE | 2024-05-29 08:41 | EXP.HP ---
History of Present Illness *Admission Date: 05/29/24 *Reason for visit:: GERD, nausea, bloating, belching/left upper quadrant pain *History of present illness: Mr. Chandler is a 44-year-old gentleman who is here for diagnostic upper endoscopy secondary to GERD, bloating, belching, left upper quadrant abdominal pain and CAT scan showing circumferential wall thickening of the distal esophagus.. The examination is deemed medically necessary for upper endoscopy. The patient has been seen, interviewed and examined prior to the procedure by both myself and the anesthesia provider. [facility] Disclaimer: The information contained in this section may have been updated after the patient was seen, as this information can be updated by other users. Medical History Right shoulder strain Anxiety Arthritis History of gastroesophageal reflux (GERD) Allergies Enlargement of right palatine tonsil right tonsillectomy performed 06/29/22 Right ear pain Presence of surgical screw in left hand GERD (gastroesophageal reflux disease) Hypertension Surgical History Status post tonsillectomy History of surgery RECONSTRUCTIVE SX LEFT HAND History of surgery INDEX FINGER REMOVED ON LEFT HAND History of nasal surgery Family History Other Lung cancer Prostate cancer Social History Smoking Status: Never smoker years smoked: 5 how long ago did patient quit smokin second hand exposure: No alcohol intake: former substance use type: painkillers current occupational status: employed Travel in the last 8 weeks: None housing: house current occupational exposures/hazards: No caffeine: Yes Have you lived/traveled outside [place] in past 30 days?: No Contact w/someone who lives/traveled outside US past 30 days?: No Exposure to someone with infectious disease in past 14 days?: No Do you have a fever (greater than 100.4 F or 38 C)?: No Have you tested positive for COVID-19: No Exposed to someone with COVID-19 in past 14 days?: No Do you have a sore throat?: No Do you have a cough?: No Do you have any weakness?: No Do you have any diarrhea?: No Are you experiencing any unusual bleeding?: No Do you have any muscle aches/pain?: No Do you have any abdominal pain?: No Are you experiencing loss of taste or smell?: No Other Medical History Have you received the Flu Vaccine for this season: Yes Have you received the Pneumonia Vaccine: No Review of Systems Review of Systems Review of systems (narrative): Negative *Cardiovascular Comments: Negative *Gastrointestinal Comments: Negative *Genitourinary Comments: Negative *Musculoskeletal Comments: Negative *Neurologic Comments: Negative Meds Home Medications and Allergies Home Medications ?Medication ?Instructions ?Recorded ?Confirmed ?Type buprenorphine 8 mg-naloxone 2 mg 1 tab sublingual DAILY . 07/03/19 05/29/24 History sublingual tablet sildenafil 100 mg tablet 100 mg PO DAILY PRN sexual 10/25/23 05/29/24 Rx activity #30 tabs cetirizine 10 mg tablet See Rx Instructions .Route 12/29/23 05/29/24 Rx .COMPLEX #90 tabs pantoprazole 40 mg tablet,delayed See Rx Instructions .Route 12/29/23 05/29/24 Rx release .COMPLEX #90 tabs lisinopril 5 mg tablet See Rx Instructions .Route 02/27/24 05/29/24 Rx .COMPLEX #90 tabs New Prescriptions to Start Prescriptions: Allergies Allergy/AdvReac Type Severity Reaction Status Date / Time No Known Allergies Allergy Verified 05/29/24 08:22 Exam Data for Last 24 hours Vital signs and Labs for Last 24 Hours: Temp Pulse Resp BP Pulse Ox O2 Del Method 97.1 F L 59 L 16 133/84 99 Room Air 05/29/24 08:24 05/29/24 08:24 05/29/24 08:24 05/29/24 08:24 05/29/24 08:24 05/29/24 08:24 *Routine HEENT Exam Head: Present normocephalic Eye: Present EOMI and PERRL ENT: Present mucous membranes moist *Routine Neck Exam Neck: Present supple *Routine Respiratory Exam Respiratory: Present CTA bilaterally *Routine Cardiovascular Exam Cardiovascular: Present RRR *Routine Abdominal Exam Abdominal: Present soft and normoactive bowel sounds; Absent tenderness *Routine Rectal Exam Rectal:: deferred *Routine Genitalia Exam Genitalia:: deferred *Routine Extremities Exam Extremities: Absent cyanosis, clubbing or edema *Routine Skin Exam Skin: Present warm; Absent rash *Routine Neurological Exam Neurological: Present alert and oriented X3 Assessment and Plan *Assessment and plan (1) LUQ pain: Status: Acute Category: Medical Code(s): R10.12 - Left upper quadrant pain (2) Abnormal CT of the abdomen: Status: Acute Category: Medical Code(s): R93.5 - Abnormal findings on diagnostic imaging of other abdominal regions, including retroperitoneum (3) Belching: Status: Acute Category: Medical Code(s): R14.2 - Eructation (4) Esophagitis: Status: Acute Category: Medical Code(s): K20.90 - Esophagitis, unspecified without bleeding (5) Bloating: Status: Acute Category: Medical Code(s): R14.0 - Abdominal distension (gaseous) (6) GERD (gastroesophageal reflux disease): Status: Acute Qualifiers: Esophagitis presence: esophagitis presence not specified Qualified Code(s): K21.9 - Gastro-esophageal reflux disease without esophagitis Category: Medical Code(s): K21.9 - Gastro-esophageal reflux disease without esophagitis Plan A/P: 1. Abnormal CAT scan of distal esophagus with circumferential thickening with symptoms of GERD, belching and left upper quadrant abdominal pain is the preprocedural diagnosis. The patient will be anesthetized/sedated using MAC sedation. The patient has been seen and examined. Cardiac and lung assessment prior to the examination is stable. Proceed with planned diagnostic upper endoscopy
[2024-05-29] MEDS: LACTATED RINGERS 1000ML 1,000 ML 50 ML IV (08:45)
--- NOTE | 2024-05-29 08:45 | P.PNANES_ITS ---
[facility] Disclaimer: The information contained in this section may have been updated after the patient was seen, as this information can be updated by other users. Medical History Right shoulder strain Anxiety Arthritis History of gastroesophageal reflux (GERD) Allergies Enlargement of right palatine tonsil right tonsillectomy performed 06/29/22 Right ear pain Presence of surgical screw in left hand GERD (gastroesophageal reflux disease) Hypertension Surgical History Status post tonsillectomy History of surgery RECONSTRUCTIVE SX LEFT HAND History of surgery INDEX FINGER REMOVED ON LEFT HAND History of nasal surgery Family History Other Lung cancer Prostate cancer Social History Smoking Status: Never smoker years smoked: 5 how long ago did patient quit smokin second hand exposure: No alcohol intake: former substance use type: painkillers current occupational status: employed Travel in the last 8 weeks: None housing: house current occupational exposures/hazards: No caffeine: Yes Have you lived/traveled outside US in past 30 days?: No Contact w/someone who lives/traveled outside US past 30 days?: No Exposure to someone with infectious disease in past 14 days?: No Do you have a fever (greater than 100.4 F or 38 C)?: No Have you tested positive for COVID-19: No Exposed to someone with COVID-19 in past 14 days?: No Do you have a sore throat?: No Do you have a cough?: No Do you have any weakness?: No Do you have any diarrhea?: No Are you experiencing any unusual bleeding?: No Do you have any muscle aches/pain?: No Do you have any abdominal pain?: No Are you experiencing loss of taste or smell?: No [facility] Anesthesia Checklist Patient Identification Patient Identification: Arm Band and Verbal (Name & ) Structural Data Admitted From: Home Planned Operative Procedure/s: EGD Consent for Planned Operative Procedure(s) Verified: Yes Verified Documents: Surgical Consent and History and Physical NPO Status Verified Time NPO: 21:00 Additional verifications Anesthesia Reactions: No Hx Blood Transfusions: No Blood Transfusion Reaction: No Cardiovascular Assessment Heart Sounds: S1 & S2 Pulse Rhythm: Irregular Peripheral Edema: No Airway Assessment Mallampati Score:: Class II C-Spine Mobility Assessed: Yes Dentition: Good Dentition Neurological Assessment Level of Consciousness: Awake, Alert, Appropriate and Follows Commands Hx Seizures: No Numbness or tingling in extremities: No Anesthesia Plan Anesthesia Risk discussed: Yes Anesthesia Plan: Verified ASA Class: II Anesthesia Type: MAC
[2024-05-29 08:46] VITALS: O2SAT 98
--- NOTE | 2024-05-29 08:57 | P.PCN_ITS ---
[facility] Procedure Note Date: 05/29/24 Time: 08:57 Procedure Note:: Upper Endoscopy Procedure Report: Esophagogastroduodenoscopy with cold biopsies Endoscopost: Jordan Arce II, MD Referring Physician: GIDEON Clark Date of Procedure: May 29, 2024 Equipment: Olympus GIF 190 standard upper endoscope Sedation: MAC sedation Indications: Mr. Chandler is a 44-year-old gentleman with longstanding GERD and he has been on pantoprazole 40 mg daily. He does have intermittent left upper quadrant abdominal pain and spasm that often occurs with anxiety and stress. He does report moderate belching, some bloating and breakthrough heartburn. He reports no dysphagia. He reports regular bowel function but does have some variability in stools and does have a little mucus with his bowel movements. He does have some intermittent nausea without vomiting. He had negative cardiac evaluation. His CAT scan had shown mild circumferential thickening of the distal esophageal wall with esophagitis and small hiatal hernia. He did have a colonoscopy in 2021 (Samuel Bran MD) and had a single polyp (tubular adenoma) removed. Procedure: Prior to the procedure, a history and physical exam was performed, and patient's medications and allergies were reviewed. The risks, benefits and alternatives of the sedation and procedure were discussed with the patient. All questions were answered and informed consent was obtained. The patient was brought to the procedure room. Patient identification and proposed procedure were verified by the physician and the nurse. The patient was placed in a left lateral decubitus position and the scope was passed under direct vision. Throughout the procedure, the patient's blood pressure, pulse, and oxygen saturations were monitored continuously. The upper GI endoscopy was accomplished without difficulty. The patient tolerated the procedure well. Findings: The scope was passed directly into the upper esophagus and advanced to the third portion of the duodenum. The post bulbar duodenum, ampulla and duodenal bulb were normal with normal mucosa and conniventes. The scope was withdrawn through a normal duodenal bulb and pylorus into the stomach. There was some linear reactive gastropathy of the antrum. The body and fundus of the stomach were normal. Biopsies were taken from the antrum. Upon retroflexion there was a 2 to 3 cm hiatal hernia. The scope was then withdrawn into the esophagus. There was 1 single island of salmon-colored mucosa that was biopsied to rule out very short segment Aguiar's esophagus. There was no evidence of reflux esophagitis, rings or strictures. There was mild tertiary contractions and mild esophageal dysmotility. The remainder of the esophageal mucosa was normal. Impression: 1. Nonerosive GERD with mild esophageal dysmotility and 2 to 3 cm hiatal hernia 2. Single distal esophageal island of salmon-colored mucosa?rule out. Short segment Aguiar's esophagus 3. Mild linear reactive gastropathy of antrum Plan: I will follow-up the biopsies. 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 I would continue pantoprazole. 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
[2024-05-29 09:04] VITALS: BP 93/57; PULSE 65; RESP 16; TEMP 36.6; O2SAT 95
[2024-05-29 09:14] VITALS: BP 113/66; PULSE 66; RESP 18; O2SAT 96
[2024-05-29 09:24] VITALS: BP 118/77; PULSE 65; RESP 18; O2SAT 96
[2024-05-29 09:34] VITALS: BP 118/70; PULSE 61; RESP 18; O2SAT 98
== END 2024-05-29 09:45 | disposition home or self-care (01) ==
PROVIDERS: PCP Nurse Practitioner Family; Visit Provider Internal Medicine Gastroenterology
PROC: 0DJ08ZZ Inspection of Upper Intestinal Tract, Via Natural or Artificial Opening Endoscopic (ICD-10-PCS; CPT 43239; principal; 2024-05-29 08:30)
DX: R10.12 Left upper quadrant pain (principal); R93.5 Abnormal findings on diagnostic imaging of other abdominal regions, including retroperitoneum; R14.2 Eructation; K20.90 Esophagitis, unspecified without bleeding; R14.0 Abdominal distension (gaseous); K21.9 Gastro-esophageal reflux disease without esophagitis; K30 Functional dyspepsia; R10.9 Unspecified abdominal pain; K22.4 Dyskinesia of esophagus; K44.9 Diaphragmatic hernia without obstruction or gangrene; K31.9 Disease of stomach and duodenum, unspecified
CPT/HCPCS: 43239; J7120

== ENCOUNTER 2024-07-01 11:11 | Emergency (ER) | payer MEDICAID, SELFPAY ==
[2024-07-01 11:18] VITALS: BP 135/89; PULSE 61; RESP 16; TEMP 36.8; O2SAT 97; BMI 31.8
--- NOTE | 2024-07-01 11:33 | PC.NURSE ---
care handoff report received from Freddie Adams RN
[2024-07-01 11:36] VITALS: BP 119/77; PULSE 69; RESP 18; TEMP 36.8; O2SAT 98
--- NOTE | 2024-07-01 11:37 | XR_ITS ---
FINAL REPORT CLINICAL HISTORY: Fall, left hand pain COMPARISON: None FINDINGS: LEFT HAND Two views of the left hand were obtained. Status post amputation second digit at level of the distal second metacarpal. Post-ORIF changes of the third metacarpal. There is no acute fracture or dislocation. The joint spaces are well-preserved. There is no acute soft tissue abnormality. IMPRESSION: Postoperative changes without acute abnormality. Reviewed, Interpreted and Dictated by Andrew Mitchell MD Transcribed by Judit De La O Authenticated and [facility]
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
[2024-07-01] MEDS: IBUPROFEN 600 MG TABLET PO (11:47)
[2024-07-01 12:00] VITALS: BP 131/76; PULSE 60; O2SAT 98
[2024-07-01 12:31] VITALS: BP 130/76; PULSE 63; O2SAT 97
[2024-07-01 13:06] VITALS: BP 130/87; PULSE 64; RESP 16; TEMP 36.8; O2SAT 97
== END 2024-07-01 13:07 | disposition home or self-care (01) ==
PROVIDERS: Emergency Provider Student in an Organized Health Care Education/Training Program; PCP Nurse Practitioner Family
DX: M79.602 Pain in left arm (principal); M25.532 Pain in left wrist; M25.512 Pain in left shoulder; M79.642 Pain in left hand; W00.0XXA Fall on same level due to ice and snow, initial encounter; Y93.89 Activity, other specified; Y92.9 Unspecified place or not applicable
CPT/HCPCS: 73120; 99283

== ENCOUNTER 2024-07-31 10:43 | Outpatient (RCR) | payer MEDICAID, SELFPAY ==
--- NOTE | 2024-07-31 15:15 | HMH.PTOPEV ---
PT Outpatient Evaluation Rehab PT Outpatient Evaluation Start: 07/31/24 13:32 Freq: Status: Active Protocol: Document 07/31/24 13:33 SOY (Rec: 07/31/24 15:15 PHORBLANCA [id number]) E-signed By Lew Dobbins, PT Outpatient Therapy Subjective History Subjective History This is the initial PT eval for Jp Brothers, 44 yowm who presents ~ 1 mo S/P ground level FOOSH on the L side with resulting L side neck and shoulder pain with radicular pain throughout the L UE. He reports mechanism of injury was FOOSH, then his hand slipped under his body and he pulled someone on top of him on his R side after slipping on ice. He had x-ray of his L wrist without fxs noted. He reports sensation of cold running throughout the L UE intermittently. He reports he has NCV test scheduled next week. He reports no significant PMH. Chief Complaint Pain Symptom Type Numbness,Tingling,Shooting, Other Symptoms Relieved By Rest/Positioning Symptoms Aggravated By Physical Activity Prior Functional Limitations None Current Functional Limitations Lifting,Desk Work/Reading Symptom Description Constant but Variable Level of pain today (0-10) 6 Pain scale - at its worst (0-10) 8 Cervical Eval Palpation Cervical Muscles L CT Junction,L Upper Trapezius Cervical/Thoracic Palpation Findings Tenderness Flexibility Deficits Upper Trapezius Muscle Length (L) Mild Tightness Levaetor Scapulae Muscle Length (L) Mild Tightness Passive Joint Mobility Cervical PIVM Dec: R C6/7 L C6/7 R C7/T1 L C7/T1 WNL: R OA L OA R AA L AA R C2/3 L C2/3 R C3/4 L C3/4 R C4/5 L C4/5 R C5/6 L C5/6 AROM Cervical Spine Extension Active Range of 0-30 Motion (degrees) Cervical Spine Flexion Active Range of 0-35 Motion (degrees) Cervical Spine Right Lateral Flexion 0-40 Active Range of Motion (degrees) Cervical Spine Left Lateral Flexion 0-40 Active Range of Motion (degrees) Cervical Spine Right Rotation Active 0-75 Range of Motion (degrees) Cervical Spine Left Rotation Active 0-75 Range of Motion (degrees) MMT Left Deltoid (C5) 4 Good Biceps Brachii Strength Grade 4 Good Wrist Extension Strength Grade 5 Normal Triceps Brachii Strength Grade 5 Normal Wrist Flexion Strength Grade 5 Normal Extensor Pollicis Longus Strength Grade 5 Normal Finger Abduction Strength Grade 5 Normal Altered Sensation Upper extremity Dermatomes C7,C8,T1 Comment numbness/tingling/cold Special Test C-Spine Foraminal Compression (Spurling) Negative Right,Positive Left Test C-spine Verterbral Accessory Movements Central P/A Ovid that Elicit Symptoms C-Spine Foraminal Distraction Test increased pain C-Spine Compression Test Negative Left,Negative Right Shoulder Abduction Relief Test Negative Left,Negative Right Neck Disability Index Neck Disability Index Section 1: Pain Intensity The pain is fairly severe at the moment Section 2: Personal Care (washing, It is painful to look after dressing, etc.) myself and I am slow and careful Section 3: Lifting Pain prevents me lifting heavy weights off the floor, but I can manage Section 4: Reading I can hardly read at all because of severe pain in my neck Section 5: Headaches I have headaches almost all the time Section 6: Concentration I have a great deal of difficulty in concentrating when I want to Section 7: Work I can't do any work at all Section 8: Driving I can hardly drive at all because of severe pain in my neck Section 9: Sleeping My sleep is greatly disturbed (3-5 hrs sleepless) Section 10: Recreation I am able to engage in a few of my usual recreation activities because NDI Score 36 Miscellaneous Dx PT Eval Objective Objective L UE neural tension tests: Ulnar positive for pain, Radial negative, median negative. Outpatient Therapy Assessment Impairments Problems/Impairmments Palpation Tenderness,Impaired Range of Motion,Impaired Strength,Impaired Lifting, Impaired Household Care, Impaired Work Activities, Subjective C/O Pain,Impaired Self Care/Self Management Prognosis Rehab Potential Good Comment Signs and symptoms consistent with L UE neural injury with associated muscle spasms and guarding in the L shoulder. Skilled therapy services are indicated to reduce pain, improve strength, and aid pt return to PLOF. Clinical Impression Consistent with Diagnosis Yes Consistent with also consistent with Additional details: signs and symptoms consistent with: S44.02XA L UE ulnar nerve injury. Short Term Goals Number of Weeks 2 Decreased Palpation Tenderness Yes: 2/4 TTP to L UT Increase Range of Motion Yes: C-spine AROM by 5 deg all dir Increase Strength Yes: L UE 4+/5 or better throughout Improve Neck Disability Index Score Yes: 30 or less Decrease Subjective C/O Pain Yes: 4/10 L side of neck and L UE Patient to be Ind w/ HEP Yes Blender Helper Goals Number of Weeks 4 Decreased Palpation Tenderness Yes: 0/4 TTP L UT Increase Range of Motion Yes: Cervical AROM by 10 deg all dir Increase Strength Yes: L UE 5/5 throughout Improve Tolerance to Desk/Computer Yes: > 30 min without pain. Activities Improve Neck Disability Index Score Yes: 20 or less Decrease Subjective C/O Pain Yes: 2/10 at worst Patient to be Ind w/ Advanced HEP Yes Outpatient Therapy Plan of Care Treatment Plan May Include Therapeutic Exercise Including Home Yes Exercise Program Manual Therapy Techniques Yes Neuromuscular Re-education Yes Therapeutic Activities to Return to Yes Previous Functional/Work Level ADL/Self Care Education Yes Thermal Modalities Yes Electrical Stimulation Yes Ultrasound/Phonophoresis Yes Massage Yes Eval/Re-Eval Yes Frequency Times per week 2-3 Duration Number of Weeks 4 Addendums This patient is a candidate for social No or vocational rehab? Patient/Guardian verbally acknowledges Yes understanding of treatment program and consents to further treatment? Patient/Guardian verbally acknowledges Yes understanding of diagnosis, prognosis and goals for treatment? Eval Complexity PT Charges 29109 - High Complexity Shoulder/Elbow Eval Shoulder Objective Measurements Elbow Objective Measurements PHYSICIAN CERTIFICATION: I certify the specified therapy services for [employer] are required, authorized, and reviewed every 30 days.
== END 2024-07-31 23:59 | disposition home or self-care (01) ==
LOC: PT 10:43
PROVIDERS: Visit Provider Family Medicine
DX: S16.1XXA Strain of muscle, fascia and tendon at neck level, initial encounter (principal)
CPT/HCPCS: 97163

== ENCOUNTER 2024-09-04 15:00 | Outpatient (RCR) | payer MEDICAID, SELFPAY ==
--- NOTE | 2024-09-04 17:50 | HMH.RHREAS ---
Rehab Reassessment Rehab OP Re-assessment Start: 08/08/24 14:55 Freq: Status: Active Protocol: Document 09/04/24 17:35 PHORBLANCA (Rec: 09/04/24 17:50 PHORNE [id number]) E-signed By Lew Dobbins, PT Neck Disability Index Neck Disability Index Section 1: Pain Intensity The pain is fairly severe at the moment Section 2: Personal Care (washing, It is painful to look after dressing, etc.) myself and I am slow and careful Section 3: Lifting Pain prevents me lifting heavy weights off the floor, but I can manage Section 4: Reading I can hardly read at all because of severe pain in my neck Section 5: Headaches I have headaches almost all the time Section 6: Concentration I have a lot of difficulty in concentrating when I want to Section 7: Work I can hardly do any work at all Section 8: Driving I can hardly drive at all because of severe pain in my neck Section 9: Sleeping My sleep is greatly disturbed (3-5 hrs sleepless) Section 10: Recreation I am able to engage in a few of my usual recreation activities because NDI Score 34 Rehab Re-assessment Subjective Subjective Pt reports continued daily headaches which are worse on the L side of his head. Also continued L side neck pain and L hand numbness/tingling and feeling cold in ulnar nerve distribution. He reports he had NCV test performed with normal results. Objective Objective Notes AROM C-spine (in deg): FLEX 0- 30, EXT 0-25, R SB 0-30, L SB 0-30, R ROT 0-50, L ROT 0-45. MMT B UE: SHLD FLEX 5/5, SHLD ABD 5/5, SHLD IR 5/5, SHLD ER 4+/5, ELBOW FLEX 5/5, ELBOW EXT 5/5, WRIST FLEX 5/5, WRIST EXT 5/5. Pain: 7/10 at this time L side of neck. dull aching and throbbing NDI: 34 this date vs 36 on IE ULTT: Ulnar nerve tension test remains painful and increases symptoms. Assessment Progress Assessment Slower Than Expected Assessment Notes Pt has shown reduction in AROM of the C-spine, no discernable change in overall pain, and continued frequent headaches. He does have slightly reduced radicular symptoms in his L UE and improved B UE strength overall . Skilled therapy remains indicated in order to reduce pain, reduce headache frequency, and improve all ability to perform ADLs at prior level of function. Patient goals met ST/6 LT/7 Plan Plan Continue per initial POC. Frequency of Therapy 2 x/wk Duration of therapy 4 wks Time and Billing Re-Eval Time 12 Re-Eval Billing Units 1 Charge for PT reassessment? Yes PHYSICIAN CERTIFICATION: I certify the specified therapy services for [employer] are required, authorized, and reviewed every 30 days.
== END 2024-09-04 23:59 | disposition home or self-care (01) ==
LOC: PT 15:00
PROVIDERS: Visit Provider Family Medicine
DX: S16.1XXA Strain of muscle, fascia and tendon at neck level, initial encounter (principal)
CPT/HCPCS: 97014; 97110; 97140; 97164; G0283

== ENCOUNTER 2024-09-26 14:00 | Outpatient (RCR) | payer MEDICAID, SELFPAY | END 2024-09-26 23:59 | disposition home or self-care (01) | LOC: PT 14:00 | PROVIDERS: Visit Provider Family Medicine | DX: S16.1XXA Strain of muscle, fascia and tendon at neck level, initial encounter (principal) | CPT/HCPCS: 97014; G0283 ==